=== PATIENT | female | born 1960 | race Caucasian/White ===

== ENCOUNTER 2016-06-12 13:17 | Outpatient (RCR) | payer MEDICAID ==
--- OUTSIDE RECORDS SUMMARY | 2016-03-15 08:47 | XMS REPORT | Continuity of Care Document ---
Author Author [facility] Organization [facility] Address Unknown Phone Unavailable Care Team Providers Care Engraver Signature Name Role Phone LUDIN SALINAS MD PCP Insurance Providers Payer Name Policy Number Subscriber Name Relationship [facility] [id number] Jimenez Seymour 18 Self / Same As Patient Advance Directives Directive Response Recorded Date/Time Advance Directives No 03/12/16 10:00pm Health Care Power of Senior Java Engineer No 03/12/16 10:00pm Organ Donor No 03/12/16 10:00pm Resuscitation Status DNR-Pt Request 03/12/16 10:00pm Chief Complaint and Reason for Visit Chief Complaint NEUTROPENIA WITH FEVER,METASTATIC BREAST CA,ANEMIA Reason for Visit Anemia Metastatic breast cancer Problems Active Problems Medical Problem Onset Date Status Anemia Unknown Acute Metastatic breast cancer Unknown Acute Medications Current Home Medications Medication Dose Units Route Directions Days/Qty Instructions Start Date Omeprazole Magnesium 20 Mg 20 Mg Oral Daily 03/12/16 Acetaminophen 500 Mg 1,000 Mg Oral Every 6 Hours as needed for Pain TAKES 2 (500 MG) TABLETS 03/12/16 Acyclovir 400 Mg 400 Mg Oral Twice A Day 03/13/16 Diphenhydramine Hcl 25 Mg 25 Mg Oral Twice A Day as needed for Allergies 03/13/16 Lorazepam 1 Mg 1 Mg Oral Three Times A Day as needed for Anxiety 09/23 Hydrocodone/Acetaminophen 1 Each 1 Tab Oral Every 4HRS as needed for Pain 03/13/16 Clindamycin Hcl 150 Mg 150 Mg Oral Four Times Daily 10 Days 03/14/16 Past Home Medications Medication Directions Ordered Status Acyclovir 200 Mg Capsule, Unknown Dose Oral Twice A Day 03/12/16 Discontinued Social History Social History Problem Response Recorded Date/Time Alcohol Use Denies Use 03/12/2016 10:00pm Recreational Drug Use No 03/12/2016 10:00pm Recent Foreign Travel No 03/12/2016 10:00pm Recent Infectious Disease Exposure No 03/12/2016 10:00pm Hospitalization with Isolation Reverse 03/14/2016 3:29pm Smoking Status Never a Smoker 03/12/2016 10:00pm Recent Hopitalizations No 03/12/2016 10:00pm Hospitalization with Isolation Reverse 03/14/2016 3:29pm Query Response Start Date Stop Date Smoking Status Never a Smoker Hospital Discharge Instructions Patient Instructions Physician Instructions New, Converted or Re-Newed RX: RX Given to Pt/Family Plan of Care/Instructions/FU: F/u with Dr. Hernández. Call for appointment. F/u at the [facility] on 03/15/2016 with CBC and to receive Granix if needed. Activity as Tolerated: Yes Discharge Diet: No Restrictions Care Plan Patient Instructions:: F/u with Dr. Hernández. Call for appointment.F/u at the [facility] on 03/15/2016 with CBC and to receive Granix ifneeded. Plan of Care Discharge Date 03/14/16 2:50pm Disposition 01 HOME, SELF-CARE Instructions/Education Provided Breast Cancer (DC) Prescriptions See Medication Section Referrals VIN HERNÁNDEZ DDRosa (Unspecified) - Address: [address] [place] [address], [facility] [place] [address] [phone] Reason(s) for Referral: follow up with Dr. Hernández Saturday03/16/16 at 1:15 pm. Additional Instructions/Education Follow up in cancer center tomorrow for Lab work. Care Plan and Goals See Discharge Instructions Section Functional Status Query Response Date Recorded Patient Orientation Person Place Time Situation March 14, 2016 3:28pm Comprehension Ability Understands Concepts March 14, 2016 8:10am Allergies, Adverse Reactions, Alerts Allergen Type Severity Reaction Status Last Updated Meperidine Allergy Unknown Active 02/03/16 ssri Adverse Reaction Unknown Active 10/03/16 Immunizations Name Given Type FLU TRIvalent 5 years - Adult 03/13/16 Administered Vital Signs Acute Vital Signs Vital Response Date/Time Temperature (Fahrenheit) 99.0 degrees F (97.6 - 99.5) 03/14/2016 2:50pm Temperature (Calculated Celsius) 36.56591 degrees C (36.4 - 37.5) 03/14/2016 8:00am Temperature Source Tympanic 03/14/2016 2:50pm Pulse Rate (adult) 91 bpm (60 - 90) 03/14/2016 2:50pm Respiratory Rate 18 bpm (12 - 24) 03/14/2016 2:50pm O2 Sat by Pulse Oximetry 98 % (88 - 100) 03/14/2016 2:50pm Blood Pressure 126/62 mm Hg 03/14/2016 2:50pm Blood Pressure Mean 74 mm Hg 03/14/2016 8:00am Pain Numeric Pain Scale 0-No Pain 03/14/2016 2:50pm Height (Feet) 5 feet 03/12/2016 10:00pm Height (Inches) 6.00 inches 03/12/2016 10:00pm Height (Calculated Centimeters) 167.541611 cm 03/12/2016 10:00pm Weight (Pounds) 165 pounds 03/12/2016 10:14pm Weight (Ounces) 1.0 oz 03/12/2016 10:14pm Weight (Calculated Grams) 37634.091 gm 03/12/2016 10:14pm Weight (Calculated Kilograms) 74.800205 kilograms 03/12/2016 10:14pm Calculated BMI 26.6 03/12/2016 10:00pm Capillary Refill Capillary Refill Less Than 3 Seconds 03/12/2016 7:51pm Results Laboratory Results Test Name Result Units Flags Reference Collection Date/Time Result Date/ Time Comments White Blood Count 1.1 10^3/uL CL 4.3-11.0 03/08/2016 9:00am 03/08/2016 9: 06am RESULTS GIVEN TO RN AT 09:04. THOMAS Red Blood Count 3.81 10^6/uL L 4.35-5.85 03/08/2016 9:00am 03/08/2016 9: 06am Hemoglobin 10.9 G/DL L 11.5-16.0 03/08/2016 9:00am 03/08/2016 9:06am Hematocrit 32 % L 35-52 03/08/2016 9:00am 03/08/2016 9:06am Mean Corpuscular Volume 83 FL 80-99 03/08/2016 9:00am 03/08/2016 9: 06am Mean Corpuscular Hemoglobin 29 PG 25-34 03/08/2016 9:00am 03/08/2016 9: 06am Mean Corpuscular Hemoglobin Concent 35 G/DL 32-36 03/08/2016 9:00am 9:06am Red Cell Distribution Width 12.5 % 10.0-14.5 03/08/2016 9:00am 2015 9:06am Platelet Count 302 10^3/uL 130-400 03/08/2016 9:00am 03/08/2016 9:06am Mean Platelet Volume 9.0 FL 7.4-10.4 03/08/2016 9:00am 03/08/2016 9: 06am Neutrophils (%) (Auto) 42 % 42-75 03/08/2016 9:00am 03/08/2016 9:06am Lymphocytes (%) (Auto) 42 % 12-44 03/08/2016 9:00am 03/08/2016 9:06am Monocytes (%) (Auto) 4 % 0-12 03/08/2016 9:00am 03/08/2016 9:06am Eosinophils (%) (Auto) 9 % 0-10 03/08/2016 9:00am 03/08/2016 9:06am Basophils (%) (Auto) 4 % 0-10 03/08/2016 9:00am 03/08/2016 9:06am Neutrophils # (Auto) 0.5 X 10^3 L 1.8-7.8 03/08/2016 9:00am 03/08/2016 9: 06am Lymphocytes # (Auto) 0.5 X 10^3 L 1.0-4.0 03/08/2016 9:00am 03/08/2016 9: 06am Monocytes # (Auto) 0.0 X 10^3 0.0-1.0 03/08/2016 9:00am 03/08/2016 9: 06am Eosinophils # (Auto) 0.1 10^3/uL 0.0-0.3 03/08/2016 9:00am 03/08/2016 9 :06am Basophils # (Auto) 0.0 10^3/uL 0.0-0.1 03/08/2016 9:00am 03/08/2016 9: 06am Urine Color YELLOW 02/07/2016 8:10am 02/07/2016 8:52am Urine Clarity SLIGHTLY CLOUDY 02/07/2016 8:10am 02/07/2016 8:52am Urine pH 6 5-9 02/07/2016 8:10am 02/07/2016 8:52am Urine Specific [place] 1.020 1.016-1.022 02/07/2016 8:10am 2015 8:52am Urine Protein 2+ * NEGATIVE 02/07/2016 8:10am 02/07/2016 8:52am Urine Glucose (UA) NEGATIVE NEGATIVE 02/07/2016 8:10am 02/07/2016 8: 52am Urine RBC (Auto) 2+ * NEGATIVE 02/07/2016 8:10am 02/07/2016 8:52am Urine Ketones 1+ * NEGATIVE 02/07/2016 8:10am 02/07/2016 8:52am Urine Nitrite NEGATIVE NEGATIVE 02/07/2016 8:10am 02/07/2016 8:52am Urine Bilirubin NEGATIVE NEGATIVE 02/07/2016 8:10am 02/07/2016 8: 52am Urine Urobilinogen 1 MG/DL NORMAL 02/07/2016 8:10am 02/07/2016 8:52am Urine Leukocyte Esterase 3+ * NEGATIVE 02/07/2016 8:10am 02/07/2016 8: 52am Urine RBC NONE /HPF 02/07/2016 8:10am 02/07/2016 8:52am Urine WBC 5-10 /HPF * 02/07/2016 8:10am 02/07/2016 8:52am Urine Bacteria MODERATE /HPF * 02/07/2016 8:10am 02/07/2016 8:52am Urine Squamous Epithelial Cells 0-2 /HPF 02/07/2016 8:10am 2015 8:52am Urine Crystals NONE /LPF 02/07/2016 8:10am 02/07/2016 8:52am Urine Casts NONE /LPF 02/07/2016 8:10am 02/07/2016 8:52am Urine Mucus MODERATE /LPF * 02/07/2016 8:10am 02/07/2016 8:52am Urine Culture Indicated YES 02/07/2016 8:10am 02/07/2016 8:52am 1 mL SPECIMEN - RESULTS ARE FROM SPECIMEN THAT WAS NOT CENTRIFUGED Sodium Level 138 MMOL/L 135-145 03/08/2016 9:00am 03/08/2016 9:34am Potassium Level 4.3 MMOL/L 3.6-5.0 03/08/2016 9:00am 03/08/2016 9:34am Chloride Level 106 MMOL/L 98-107 03/08/2016 9:00am 03/08/2016 9:34am Carbon Dioxide Level 22 MMOL/L 21-32 03/08/2016 9:00am 03/08/2016 9: 34am Anion Gap 10 MMOL/L 5-14 03/08/2016 9:00am 03/08/2016 9:34am Blood Urea Nitrogen 14 MG/DL 7-18 03/08/2016 9:00am 03/08/2016 9:34am Creatinine 0.65 MG/DL 0.60-1.30 03/08/2016 9:00am 03/08/2016 9:34am BUN/Creatinine Ratio 22 03/08/2016 9:00am 03/08/2016 9:34am Estimat Glomerular Filtration Rate > 60 03/08/2016 9:00am 2015 9:34am GFR INTERPRETIVE DATA UNITS FOR ESTIMATED GFR (eGFR): mL/min/1.73 M2 REFERENCE RANGE FOR ESTIMATED GFR (eGFR) eGFR NORMAL eGFR >60 MODERATELY DECREASED eGFR 30-59 SEVERLY DECREASED eGFR 15-29 KIDNEY FAILURE <15 (OR DIALYSIS) Glucose Level 85 MG/DL 70-105 03/08/2016 9:00am 03/08/2016 9:34am Glucometer 114 MG/DL H 70-110 02/07/2016 8:44am 02/07/2016 8:47am Calcium Level 9.2 MG/DL 8.5-10.1 03/08/2016 9:00am 03/08/2016 9:34am Total Bilirubin 0.7 MG/DL 0.1-1.0 02/28/2016 2:16pm 02/28/2016 2:43pm Alkaline Phosphatase 93 U/L 40-136 02/28/2016 2:16pm 02/28/2016 2:43pm Aspartate Amino Transf (AST/SGOT) 40 U/L H 5-34 02/28/2016 2:16pm 2015 2:43pm Alanine Aminotransferase (ALT/SGPT) 30 U/L 0-55 02/28/2016 2:16pm 02/27 2:43pm Total Protein 6.7 G/DL 6.4-8.2 02/28/2016 2:16pm 02/28/2016 2:43pm Albumin 4.0 G/DL 3.2-4.5 02/28/2016 2:16pm 02/28/2016 2:43pm Pending Laboratory Results Test Name Collection Date/Time Pending Microbiology Results Procedure Source Collection Date/Time Procedures No known history of procedures. Encounters Encounter Location Arrival/Admit Date Discharge/Depart Date Attending Provider Discharged Inpatient [facility] 03/12/16 9:04pm 2:50pm IRINA ROLAND Discharged Recurring [facility] 03/08/16 8:52am 1:49pm IRINA ROLAND Recent Diagnosis Anemia Metastatic breast cancer
[2016-03-15 09:03] LABS: MEAN CORPUSCULAR HEMOGLOBIN 29 PG (25-34); MEAN CORPUSCULAR HGB CONC 35 G/DL (32-36); MEAN CORPUSCULAR VOLUME 84 FL (80-99); MEAN PLATELET VOLUME 8.7 FL (7.4-10.4); PLATELET COUNT 281 10^3/uL (130-400); RED BLOOD COUNT 3.62 10^6/uL (4.35-5.85); WHITE BLOOD COUNT 21.6 10^3/uL (4.3-11.0)
[2016-03-20 13:47] LABS: BASOPHILS % (AUTO) 1 % (0-10); EOSINOPHILS % (AUTO) 1 % (0-10); LYMPHOCYTES # (AUTO) 0.9 X 10^3 (1.0-4.0); LYMPHOCYTES % (AUTO) 14 % (12-44); MEAN CORPUSCULAR HEMOGLOBIN 28 PG (25-34); MEAN CORPUSCULAR HGB CONC 33 G/DL (32-36); MEAN CORPUSCULAR VOLUME 84 FL (80-99); MEAN PLATELET VOLUME 8.9 FL (7.4-10.4); MONOCYTES # (AUTO) 0.9 X 10^3 (0.0-1.0); MONOCYTES % (AUTO) 14 % (0-12); NEUTROPHILS # (AUTO) 4.5 X 10^3 (1.8-7.8); NEUTROPHILS % (AUTO) 71 % (42-75); PLATELET COUNT 276 10^3/uL (130-400); RED BLOOD COUNT 3.97 10^6/uL (4.35-5.85); RED CELL DISTRIBUTION WIDTH 14.1 % (10.0-14.5); WHITE BLOOD COUNT 6.2 10^3/uL (4.3-11.0)
[2016-03-20 14:16] LABS: ALANINE AMINOTRANSFERASE 21 U/L (0-55); ALBUMIN 4.3 G/DL (3.2-4.5); ANION GAP 13 MMOL/L (5-14); ASPARTATE AMINO TRANSFERASE 23 U/L (5-34); BILIRUBIN,TOTAL 0.4 MG/DL (0.1-1.0); BLOOD UREA NITROGEN 8 MG/DL (7-18); BUN/CREATININE RATIO 11; CALCIUM 9.3 MG/DL (8.5-10.1); CARBON DIOXIDE 21 MMOL/L (21-32); CHLORIDE 105 MMOL/L (98-107); CREATININE SERUM 0.71 MG/DL (0.60-1.30); GFR ESTIMATED > 60; GLUCOSE 117 MG/DL (70-105); POTASSIUM 3.7 MMOL/L (3.6-5.0); SODIUM 139 MMOL/L (135-145); TOTAL PROTEIN 7.3 G/DL (6.4-8.2)
[2016-03-23 16:08] LABS: BASOPHILS % (AUTO) 0 % (0-10); EOSINOPHILS % (AUTO) 0 % (0-10); LYMPHOCYTES # (AUTO) 0.7 X 10^3 (1.0-4.0); LYMPHOCYTES % (AUTO) 3 % (12-44); MEAN CORPUSCULAR HEMOGLOBIN 29 PG (25-34); MEAN CORPUSCULAR HGB CONC 34 G/DL (32-36); MEAN CORPUSCULAR VOLUME 85 FL (80-99); MEAN PLATELET VOLUME 10.1 FL (7.4-10.4); MONOCYTES # (AUTO) 0.2 X 10^3 (0.0-1.0); MONOCYTES % (AUTO) 1 % (0-12); NEUTROPHILS # (AUTO) 22.2 X 10^3 (1.8-7.8); NEUTROPHILS % (AUTO) 96 % (42-75); PLATELET COUNT 234 10^3/uL (130-400); RED BLOOD COUNT 3.63 10^6/uL (4.35-5.85); RED CELL DISTRIBUTION WIDTH 14.6 % (10.0-14.5); WHITE BLOOD COUNT 23.1 10^3/uL (4.3-11.0)
[2016-03-27 08:48] LABS: BASOPHILS % (AUTO) 3 % (0-10); EOSINOPHILS % (AUTO) 2 % (0-10); LYMPHOCYTES # (AUTO) 0.4 X 10^3 (1.0-4.0); LYMPHOCYTES % (AUTO) 29 % (12-44); MEAN CORPUSCULAR HEMOGLOBIN 29 PG (25-34); MEAN CORPUSCULAR HGB CONC 34 G/DL (32-36); MEAN CORPUSCULAR VOLUME 83 FL (80-99); MEAN PLATELET VOLUME 9.2 FL (7.4-10.4); MONOCYTES # (AUTO) 0.1 X 10^3 (0.0-1.0); MONOCYTES % (AUTO) 4 % (0-12); NEUTROPHILS # (AUTO) 0.8 X 10^3 (1.8-7.8); NEUTROPHILS % (AUTO) 62 % (42-75); PLATELET COUNT 291 10^3/uL (130-400)
[2016-03-27 08:49] LABS: WHITE BLOOD COUNT 1.2 10^3/uL (4.3-11.0)
[2016-03-27 09:41] LABS: ANION GAP 6 MMOL/L (5-14); BLOOD UREA NITROGEN 9 MG/DL (7-18); BUN/CREATININE RATIO 15; CALCIUM 9.2 MG/DL (8.5-10.1); CARBON DIOXIDE 27 MMOL/L (21-32); CHLORIDE 104 MMOL/L (98-107); GFR ESTIMATED > 60; GLUCOSE 85 MG/DL (70-105); SODIUM 137 MMOL/L (135-145)
[2016-04-03 09:38] LABS: BASOPHILS # (AUTO) 0.1 10^3/uL (0.0-0.1); BASOPHILS % (AUTO) 4 % (0-10); EOSINOPHILS # (AUTO) 0.1 10^3/uL (0.0-0.3); EOSINOPHILS % (AUTO) 6 % (0-10); LYMPHOCYTES # (AUTO) 0.4 X 10^3 (1.0-4.0); LYMPHOCYTES % (AUTO) 36 % (12-44); MEAN CORPUSCULAR HEMOGLOBIN 29 PG (25-34); MEAN CORPUSCULAR HGB CONC 34 G/DL (32-36); MEAN CORPUSCULAR VOLUME 85 FL (80-99); MEAN PLATELET VOLUME 8.5 FL (7.4-10.4); MONOCYTES # (AUTO) 0.6 X 10^3 (0.0-1.0); MONOCYTES % (AUTO) 47 % (0-12); NEUTROPHILS # (AUTO) 0.1 X 10^3 (1.8-7.8); NEUTROPHILS % (AUTO) 7 % (42-75); PLATELET COUNT 270 10^3/uL (130-400); RED BLOOD COUNT 3.55 10^6/uL (4.35-5.85); RED CELL DISTRIBUTION WIDTH 15.5 % (10.0-14.5)
[2016-04-03 09:45] LABS: WHITE BLOOD COUNT 1.2 10^3/uL (4.3-11.0)
[2016-04-03 10:13] LABS: ANION GAP 7 MMOL/L (5-14); BLOOD UREA NITROGEN 6 MG/DL (7-18); BUN/CREATININE RATIO 9; CARBON DIOXIDE 27 MMOL/L (21-32); CHLORIDE 106 MMOL/L (98-107); CREATININE SERUM 0.65 MG/DL (0.60-1.30); GFR ESTIMATED > 60; GLUCOSE 88 MG/DL (70-105); SODIUM 140 MMOL/L (135-145)
[2016-04-09 09:04] LABS: BASOPHILS # (AUTO) 0.1 10^3/uL (0.0-0.1); BASOPHILS % (AUTO) 2 % (0-10); EOSINOPHILS % (AUTO) 1 % (0-10); LYMPHOCYTES # (AUTO) 0.6 X 10^3 (1.0-4.0); LYMPHOCYTES % (AUTO) 17 % (12-44); MEAN CORPUSCULAR HEMOGLOBIN 29 PG (25-34); MEAN CORPUSCULAR HGB CONC 34 G/DL (32-36); MEAN CORPUSCULAR VOLUME 85 FL (80-99); MONOCYTES # (AUTO) 0.8 X 10^3 (0.0-1.0); MONOCYTES % (AUTO) 22 % (0-12); NEUTROPHILS # (AUTO) 2.3 X 10^3 (1.8-7.8); NEUTROPHILS % (AUTO) 59 % (42-75); PLATELET COUNT 420 10^3/uL (130-400); RED BLOOD COUNT 3.89 10^6/uL (4.35-5.85); RED CELL DISTRIBUTION WIDTH 15.7 % (10.0-14.5); WHITE BLOOD COUNT 3.9 10^3/uL (4.3-11.0)
[2016-04-09 09:35] LABS: ALANINE AMINOTRANSFERASE 20 U/L (0-55); ALBUMIN 4.3 G/DL (3.2-4.5); ANION GAP 7 MMOL/L (5-14); ASPARTATE AMINO TRANSFERASE 19 U/L (5-34); BILIRUBIN,TOTAL 0.4 MG/DL (0.1-1.0); BLOOD UREA NITROGEN 6 MG/DL (7-18); BUN/CREATININE RATIO 9; CALCIUM 9.2 MG/DL (8.5-10.1); CARBON DIOXIDE 27 MMOL/L (21-32); CHLORIDE 107 MMOL/L (98-107); CREATININE SERUM 0.67 MG/DL (0.60-1.30); GFR ESTIMATED > 60; GLUCOSE 94 MG/DL (70-105); POTASSIUM 3.9 MMOL/L (3.6-5.0); SODIUM 141 MMOL/L (135-145); TOTAL PROTEIN 7.3 G/DL (6.4-8.2)
[2016-04-16 10:17] LABS: BASOPHILS # (AUTO) 0.1 10^3/uL (0.0-0.1); BASOPHILS % (AUTO) 3 % (0-10); EOSINOPHILS # (AUTO) 0.1 10^3/uL (0.0-0.3); EOSINOPHILS % (AUTO) 2 % (0-10); LYMPHOCYTES # (AUTO) 0.5 X 10^3 (1.0-4.0); LYMPHOCYTES % (AUTO) 19 % (12-44); MEAN CORPUSCULAR HEMOGLOBIN 29 PG (25-34); MEAN CORPUSCULAR HGB CONC 33 G/DL (32-36); MEAN CORPUSCULAR VOLUME 87 FL (80-99); MEAN PLATELET VOLUME 9.3 FL (7.4-10.4); MONOCYTES # (AUTO) 0.3 X 10^3 (0.0-1.0); MONOCYTES % (AUTO) 12 % (0-12); NEUTROPHILS # (AUTO) 1.8 X 10^3 (1.8-7.8); NEUTROPHILS % (AUTO) 64 % (42-75); PLATELET COUNT 185 10^3/uL (130-400); RED BLOOD COUNT 3.47 10^6/uL (4.35-5.85); RED CELL DISTRIBUTION WIDTH 15.2 % (10.0-14.5); WHITE BLOOD COUNT 2.8 10^3/uL (4.3-11.0)
[2016-04-16 10:54] LABS: ANION GAP 8 MMOL/L (5-14); BLOOD UREA NITROGEN 7 MG/DL (7-18); BUN/CREATININE RATIO 11; CALCIUM 9.3 MG/DL (8.5-10.1); CARBON DIOXIDE 27 MMOL/L (21-32); CHLORIDE 106 MMOL/L (98-107); CREATININE SERUM 0.61 MG/DL (0.60-1.30); GFR ESTIMATED > 60; GLUCOSE 91 MG/DL (70-105); POTASSIUM 3.8 MMOL/L (3.6-5.0); SODIUM 141 MMOL/L (135-145)
[2016-04-20 09:40] LABS: MEAN CORPUSCULAR HEMOGLOBIN 29 PG (25-34); MEAN CORPUSCULAR HGB CONC 32 G/DL (32-36); MEAN CORPUSCULAR VOLUME 88 FL (80-99); MEAN PLATELET VOLUME 9.4 FL (7.4-10.4); PLATELET COUNT 192 10^3/uL (130-400); RED BLOOD COUNT 3.55 10^6/uL (4.35-5.85); RED CELL DISTRIBUTION WIDTH 16.3 % (10.0-14.5)
[2016-04-20 09:47] LABS: WHITE BLOOD COUNT 42.1 10^3/uL (4.3-11.0)
[2016-04-26 12:00] LABS: BASOPHILS % (AUTO) 1 % (0-10); EOSINOPHILS % (AUTO) 2 % (0-10); LYMPHOCYTES # (AUTO) 0.6 X 10^3 (1.0-4.0); LYMPHOCYTES % (AUTO) 27 % (12-44); MEAN CORPUSCULAR HEMOGLOBIN 29 PG (25-34); MEAN CORPUSCULAR HGB CONC 33 G/DL (32-36); MEAN CORPUSCULAR VOLUME 87 FL (80-99); MEAN PLATELET VOLUME 9.4 FL (7.4-10.4); MONOCYTES # (AUTO) 0.4 X 10^3 (0.0-1.0); MONOCYTES % (AUTO) 21 % (0-12); NEUTROPHILS % (AUTO) 49 % (42-75); PLATELET COUNT 247 10^3/uL (130-400); RED BLOOD COUNT 3.55 10^6/uL (4.35-5.85); RED CELL DISTRIBUTION WIDTH 16.2 % (10.0-14.5); WHITE BLOOD COUNT 2.1 10^3/uL (4.3-11.0)
[2016-04-26 13:25] LABS: ANION GAP 6 MMOL/L (5-14); BLOOD UREA NITROGEN 6 MG/DL (7-18); BUN/CREATININE RATIO 9; CARBON DIOXIDE 28 MMOL/L (21-32); CHLORIDE 107 MMOL/L (98-107); CREATININE SERUM 0.68 MG/DL (0.60-1.30); GFR ESTIMATED > 60; GLUCOSE 111 MG/DL (70-105); POTASSIUM 3.8 MMOL/L (3.6-5.0); SODIUM 141 MMOL/L (135-145)
[2016-05-07 09:22] LABS: BASOPHILS % (AUTO) 0 % (0-10); EOSINOPHILS % (AUTO) 0 % (0-10); LYMPHOCYTES # (AUTO) 0.2 X 10^3 (1.0-4.0); LYMPHOCYTES % (AUTO) 4 % (12-44); MEAN CORPUSCULAR HEMOGLOBIN 29 PG (25-34); MEAN CORPUSCULAR HGB CONC 34 G/DL (32-36); MEAN CORPUSCULAR VOLUME 86 FL (80-99); MEAN PLATELET VOLUME 9.6 FL (7.4-10.4); MONOCYTES # (AUTO) 0.1 X 10^3 (0.0-1.0); MONOCYTES % (AUTO) 1 % (0-12); NEUTROPHILS # (AUTO) 5.6 X 10^3 (1.8-7.8); NEUTROPHILS % (AUTO) 95 % (42-75); PLATELET COUNT 294 10^3/uL (130-400); RED BLOOD COUNT 3.67 10^6/uL (4.35-5.85); RED CELL DISTRIBUTION WIDTH 16.1 % (10.0-14.5); WHITE BLOOD COUNT 5.9 10^3/uL (4.3-11.0)
[2016-05-07 09:46] LABS: ALANINE AMINOTRANSFERASE 32 U/L (0-55); ALBUMIN 4.4 G/DL (3.2-4.5); ANION GAP 10 MMOL/L (5-14); ASPARTATE AMINO TRANSFERASE 30 U/L (5-34); BILIRUBIN,TOTAL 0.5 MG/DL (0.1-1.0); BLOOD UREA NITROGEN 10 MG/DL (7-18); BUN/CREATININE RATIO 16; CALCIUM 9.6 MG/DL (8.5-10.1); CARBON DIOXIDE 21 MMOL/L (21-32); CHLORIDE 108 MMOL/L (98-107); CREATININE SERUM 0.64 MG/DL (0.60-1.30); GFR ESTIMATED > 60; GLUCOSE 129 MG/DL (70-105); POTASSIUM 3.9 MMOL/L (3.6-5.0); SODIUM 139 MMOL/L (135-145); TOTAL PROTEIN 7.2 G/DL (6.4-8.2)
[2016-05-14 08:49] LABS: BASOPHILS % (AUTO) 0 % (0-10); EOSINOPHILS % (AUTO) 0 % (0-10); LYMPHOCYTES # (AUTO) 0.2 X 10^3 (1.0-4.0); LYMPHOCYTES % (AUTO) 5 % (12-44); MEAN CORPUSCULAR HEMOGLOBIN 29 PG (25-34); MEAN CORPUSCULAR HGB CONC 34 G/DL (32-36); MEAN CORPUSCULAR VOLUME 87 FL (80-99); MEAN PLATELET VOLUME 9.7 FL (7.4-10.4); MONOCYTES % (AUTO) 1 % (0-12); NEUTROPHILS % (AUTO) 94 % (42-75); PLATELET COUNT 352 10^3/uL (130-400); RED BLOOD COUNT 3.73 10^6/uL (4.35-5.85); RED CELL DISTRIBUTION WIDTH 15.5 % (10.0-14.5); WHITE BLOOD COUNT 3.2 10^3/uL (4.3-11.0)
[2016-05-14 09:15] LABS: ANION GAP 10 MMOL/L (5-14); BLOOD UREA NITROGEN 11 MG/DL (7-18); BUN/CREATININE RATIO 17; CALCIUM 9.5 MG/DL (8.5-10.1); CARBON DIOXIDE 22 MMOL/L (21-32); CHLORIDE 106 MMOL/L (98-107); CREATININE SERUM 0.64 MG/DL (0.60-1.30); GFR ESTIMATED > 60; GLUCOSE 130 MG/DL (70-105); POTASSIUM 3.9 MMOL/L (3.6-5.0); SODIUM 138 MMOL/L (135-145)
[2016-05-21 08:44] LABS: BASOPHILS % (AUTO) 0 % (0-10); EOSINOPHILS % (AUTO) 0 % (0-10); LYMPHOCYTES # (AUTO) 0.1 X 10^3 (1.0-4.0); LYMPHOCYTES % (AUTO) 4 % (12-44); MEAN CORPUSCULAR HEMOGLOBIN 30 PG (25-34); MEAN CORPUSCULAR HGB CONC 34 G/DL (32-36); MEAN CORPUSCULAR VOLUME 87 FL (80-99); MEAN PLATELET VOLUME 9.2 FL (7.4-10.4); MONOCYTES % (AUTO) 1 % (0-12); NEUTROPHILS # (AUTO) 3.2 X 10^3 (1.8-7.8); NEUTROPHILS % (AUTO) 95 % (42-75); PLATELET COUNT 287 10^3/uL (130-400); RED BLOOD COUNT 3.76 10^6/uL (4.35-5.85); WHITE BLOOD COUNT 3.4 10^3/uL (4.3-11.0)
[2016-05-21 09:07] LABS: ANION GAP 12 MMOL/L (5-14); BLOOD UREA NITROGEN 8 MG/DL (7-18); BUN/CREATININE RATIO 12; CALCIUM 9.4 MG/DL (8.5-10.1); CARBON DIOXIDE 20 MMOL/L (21-32); CHLORIDE 106 MMOL/L (98-107); CREATININE SERUM 0.69 MG/DL (0.60-1.30); GFR ESTIMATED > 60; GLUCOSE 174 MG/DL (70-105); POTASSIUM 3.6 MMOL/L (3.6-5.0); SODIUM 138 MMOL/L (135-145)
[2016-05-28 13:15] LABS: BASOPHILS % (AUTO) 1 % (0-10); EOSINOPHILS # (AUTO) 0.1 10^3/uL (0.0-0.3); EOSINOPHILS % (AUTO) 3 % (0-10); LYMPHOCYTES # (AUTO) 0.4 X 10^3 (1.0-4.0); LYMPHOCYTES % (AUTO) 20 % (12-44); MEAN CORPUSCULAR HEMOGLOBIN 29 PG (25-34); MEAN CORPUSCULAR HGB CONC 34 G/DL (32-36); MEAN CORPUSCULAR VOLUME 87 FL (80-99); MEAN PLATELET VOLUME 8.8 FL (7.4-10.4); MONOCYTES # (AUTO) 0.2 X 10^3 (0.0-1.0); MONOCYTES % (AUTO) 9 % (0-12); NEUTROPHILS # (AUTO) 1.4 X 10^3 (1.8-7.8); NEUTROPHILS % (AUTO) 67 % (42-75); PLATELET COUNT 295 10^3/uL (130-400); RED BLOOD COUNT 3.64 10^6/uL (4.35-5.85)
[2016-05-28 13:46] LABS: ALANINE AMINOTRANSFERASE 45 U/L (0-55); ALBUMIN 4.2 G/DL (3.2-4.5); ANION GAP 10 MMOL/L (5-14); ASPARTATE AMINO TRANSFERASE 28 U/L (5-34); BILIRUBIN,TOTAL 0.5 MG/DL (0.1-1.0); BLOOD UREA NITROGEN 6 MG/DL (7-18); BUN/CREATININE RATIO 9; CALCIUM 8.9 MG/DL (8.5-10.1); CARBON DIOXIDE 22 MMOL/L (21-32); CHLORIDE 106 MMOL/L (98-107); CREATININE SERUM 0.68 MG/DL (0.60-1.30); GFR ESTIMATED > 60; GLUCOSE 120 MG/DL (70-105); MAGNESIUM 2.1 MG/DL (1.8-2.4); POTASSIUM 3.4 MMOL/L (3.6-5.0); SODIUM 138 MMOL/L (135-145); TOTAL PROTEIN 6.9 G/DL (6.4-8.2)
[2016-06-05 14:01] LABS: BASOPHILS % (AUTO) 1 % (0-10); EOSINOPHILS # (AUTO) 0.1 10^3/uL (0.0-0.3); EOSINOPHILS % (AUTO) 1 % (0-10); LYMPHOCYTES # (AUTO) 0.7 X 10^3 (1.0-4.0); LYMPHOCYTES % (AUTO) 17 % (12-44); MEAN CORPUSCULAR HEMOGLOBIN 29 PG (25-34); MEAN CORPUSCULAR HGB CONC 34 G/DL (32-36); MEAN CORPUSCULAR VOLUME 87 FL (80-99); MEAN PLATELET VOLUME 9.1 FL (7.4-10.4); MONOCYTES # (AUTO) 0.4 X 10^3 (0.0-1.0); MONOCYTES % (AUTO) 9 % (0-12); NEUTROPHILS % (AUTO) 72 % (42-75); PLATELET COUNT 344 10^3/uL (130-400); RED BLOOD COUNT 3.67 10^6/uL (4.35-5.85); RED CELL DISTRIBUTION WIDTH 14.8 % (10.0-14.5); WHITE BLOOD COUNT 4.2 10^3/uL (4.3-11.0)
[2016-06-05 14:16] LABS: ANION GAP 10 MMOL/L (5-14); BLOOD UREA NITROGEN 7 MG/DL (7-18); BUN/CREATININE RATIO 10; CARBON DIOXIDE 22 MMOL/L (21-32); CHLORIDE 106 MMOL/L (98-107); CREATININE SERUM 0.71 MG/DL (0.60-1.30); GFR ESTIMATED > 60; GLUCOSE 87 MG/DL (70-105); POTASSIUM 3.7 MMOL/L (3.6-5.0); SODIUM 138 MMOL/L (135-145)
[~2016-06-12] VITALS: Ht 166.4 cm; Wt 77.1 kg
[~2016-06-12 13:17] MED LIST: ACET-168 PO; ACYC200C PO; ACYC400T PO; CLIN150C17 PO; CYCLOPHOSPHAMIDE INJECTION 1,000 MG in NS (IVPB) CANCER CENTER 250 ML IV SCH; DIPH25TA31 PO; DOXORUBICIN IV SCH; FAMOTIDINE 20MG/2ML IV (CANCER CTR) IV SCH; FOSAPREPITANT 150 MG/NS 150 MG IVPB (CANCER CTR) IV PRN; HYDR-3729 PO; LORA1TAB PO; LORazepam 0.5 MG (ATIVAN) TABLET CANCER CTR PO PRN; LORazepam INJ 2 MG/ML VIAL CANCER CTR IV SCH; NS IV 500 ML (CANCER CENTER) IV SCH; NS IV SCH; OMEP20TA33 PO; ONDANSETRON 16 MG, DEXAMETHASONE 10 MG/NS 50 ML IVPB IV SCH; PACLITAXEL SEMI SYNTHETIC IV SCH; PALONOSETRON HCL 0.25 MG, DEXAMETHASONE PF INJ (CANCER C 5 MG in NS (IVPB) CANCER CENTE... IV PRN; TBO-FILGRASTIM 480 MCG/0.8 ML (GRANIX) CANCER CTR SQ SCH; diphenhydrAMINE 25 MG TAB (BENADRYL) CANCER CENTER PO SCH; diphenhydrAMINE 50 MG/ML INJ (CANCER CENTER) IV PRN; diphenhydrAMINE 50 MG/ML INJ (CANCER CENTER) ONE
[2016-06-12 13:46] LABS: BASOPHILS % (AUTO) 1 % (0-10); EOSINOPHILS # (AUTO) 0.1 10^3/uL (0.0-0.3); EOSINOPHILS % (AUTO) 2 % (0-10); LYMPHOCYTES # (AUTO) 0.6 X 10^3 (1.0-4.0); LYMPHOCYTES % (AUTO) 15 % (12-44); MEAN CORPUSCULAR HEMOGLOBIN 29 PG (25-34); MEAN CORPUSCULAR HGB CONC 34 G/DL (32-36); MEAN CORPUSCULAR VOLUME 87 FL (80-99); MEAN PLATELET VOLUME 8.8 FL (7.4-10.4); MONOCYTES # (AUTO) 0.4 X 10^3 (0.0-1.0); MONOCYTES % (AUTO) 11 % (0-12); NEUTROPHILS # (AUTO) 2.7 X 10^3 (1.8-7.8); NEUTROPHILS % (AUTO) 70 % (42-75); PLATELET COUNT 324 10^3/uL (130-400); RED BLOOD COUNT 3.75 10^6/uL (4.35-5.85); RED CELL DISTRIBUTION WIDTH 14.9 % (10.0-14.5); WHITE BLOOD COUNT 3.8 10^3/uL (4.3-11.0)
[2016-06-12 14:15] LABS: ANION GAP 10 MMOL/L (5-14); BLOOD UREA NITROGEN 10 MG/DL (7-18); BUN/CREATININE RATIO 14; CALCIUM 8.8 MG/DL (8.5-10.1); CARBON DIOXIDE 22 MMOL/L (21-32); CHLORIDE 108 MMOL/L (98-107); CREATININE SERUM 0.71 MG/DL (0.60-1.30); GFR ESTIMATED > 60; GLUCOSE 91 MG/DL (70-105); POTASSIUM 4.6 MMOL/L (3.6-5.0); SODIUM 140 MMOL/L (135-145)
== END 2016-06-13 | disposition home or self-care (01) ==
LOC: ONC 13:17
PROVIDERS: ATTEND Internal Medicine Hematology & Oncology
DX: Z51.11 Encounter for antineoplastic chemotherapy (principal); C50.411 Malignant neoplasm of upper-outer quadrant of right female breast; Z17.0 Estrogen receptor positive status [ER+]; Z80.3 Family history of malignant neoplasm of breast
CPT/HCPCS: 36415; 36591; 80048; 80053; 83735; 85025; 96367; 96372; 96374; 96375; 96411; 96413; 96417; 99213

== ENCOUNTER → 2016-07-26 | Outpatient (CLI) | payer MEDICAID ==
[~2016-07-26] MED LIST changes: -CYCLOPHOSPHAMIDE INJECTION 1,000 MG in NS (IVPB) CANCER CENTER 250 ML IV SCH; +DOCU-143 PO; -DOXORUBICIN IV SCH; -FAMOTIDINE 20MG/2ML IV (CANCER CTR) IV SCH; -FOSAPREPITANT 150 MG/NS 150 MG IVPB (CANCER CTR) IV PRN; +HYDR-3812 PO; -LORazepam 0.5 MG (ATIVAN) TABLET CANCER CTR PO PRN; -LORazepam INJ 2 MG/ML VIAL CANCER CTR IV SCH; -NS IV 500 ML (CANCER CENTER) IV SCH; -NS IV SCH; -ONDANSETRON 16 MG, DEXAMETHASONE 10 MG/NS 50 ML IVPB IV SCH; -PACLITAXEL SEMI SYNTHETIC IV SCH; -PALONOSETRON HCL 0.25 MG, DEXAMETHASONE PF INJ (CANCER C 5 MG in NS (IVPB) CANCER CENTE... IV PRN; -TBO-FILGRASTIM 480 MCG/0.8 ML (GRANIX) CANCER CTR SQ SCH; -diphenhydrAMINE 25 MG TAB (BENADRYL) CANCER CENTER PO SCH; -diphenhydrAMINE 50 MG/ML INJ (CANCER CENTER) IV PRN; -diphenhydrAMINE 50 MG/ML INJ (CANCER CENTER) ONE
--- OUTSIDE RECORDS SUMMARY | 2016-07-26 08:49 | XMS REPORT | Continuity of Care Document ---
Author Author [facility] Organization [facility] Address Unknown Phone Unavailable Care Team Providers Care Corrosion Engineer Name Role Phone LUDIN SALINAS MD PCP Insurance Providers Payer Name Policy Number Subscriber [facility] [id number] Jimenez Seymour 18 Self / Same As Patient Advance Directives Directive Response Recorded Date/Time Advance Directives No 03/12/16 10:00pm Health Care Power of Qualification Engineer No 03/12/16 10:00pm Organ Donor No [...] Discharge/Depart Date Attending Provider Discharged Recurring [facility] 06/12/16 1:17pm 11:59pm IRINA ROLAND
--- NOTE | 2016-07-26 18:57 | Diagnostic Imaging Report ---
Right breast ultrasound. INDICATION: History of breast cancer. Check tumor size. COMPARISON: 04/26/2016. FINDINGS: The area of the mass along the 10 o'clock zone previously seen has slightly heterogeneous parenchyma appearance with no discrete lesion identified. IMPRESSION: Interval complete resolution of the previously seen mass at 10 o'clock position by ultrasound. ACR BI-RADS Category 6: Known biopsy proven malignancy. Dictated by: Dictated on workstation # [id number]
== END ==
LOC: RAD 08:45
PROVIDERS: ATTEND Nurse Practitioner Adult Health
DX: C50.411 Malignant neoplasm of upper-outer quadrant of right female breast (principal)

== ENCOUNTER → 2016-08-01 | Outpatient (CLI) | payer MEDICAID ==
--- OUTSIDE RECORDS SUMMARY | 2016-08-01 10:56 | XMS REPORT | Continuity of Care Document ---
Author Author [facility] Organization [facility] Address Unknown Phone Unavailable Care Team Providers Care Brusher Hand Name Role Phone LUDIN SALINAS MD PCP Insurance Providers Payer Name Policy Number [facility] [id number] Jimenez Seymour 18 Self / Same As Patient Advance Directives Directive Response Recorded Date/Time Advance Directives No 03/12/16 10:00pm Health Care Power of Heavy Mobile Equipment Repairer No 03/12/16 10:00pm Organ Donor No 03/12/16 [...] Discharge/Depart Date Attending Provider Discharged Recurring [facility] 06/12/16 1:17pm 11:59pm IRINA ROLAND
--- NOTE | 2016-08-01 12:16 | Diagnostic Imaging Report ---
EXAMINATION: Pelvic ultrasound. INDICATION: Pelvic pain. COMPARISON: There are no previous pelvic ultrasound examinations available for comparison. FINDINGS: The uterus is not enlarged measuring 6.4 x 4.3 x 3.4 cm. There is a calcified hypoechoic mass in the uterine body/fundus on the right measuring 2.1 x 1.6 x 2.1 cm. Most likely, this represents a calcified uterine fibroid. In retrospect, this finding was also present on the prior PET/CT exam of 01/24/2016. The suspected fibroid does not seem to have changed significantly. The endometrium does not seem to be thickened although it was not well visualized. The endometrium measures approximately 3 mm. Both ovaries are identified and are generally unremarkable. Each ovary contains a few subcentimeter follicles. There is no solid pelvic mass or free fluid collection noted. IMPRESSION: 1. The uterus is not enlarged but there does appear to be a 2.1 x 2.1 cm calcified uterine fibroid on the right. 2. The endometrial lining is not well-visualized but the endometrium does not appear to be abnormally thickened. 3. There is no pelvic mass or free fluid collection to suggest an acute abnormality. Dictated by: Dictated on workstation # [id number]
== END ==
LOC: RAD 10:52
PROVIDERS: ATTEND Obstetrics & Gynecology
DX: R10.2 Pelvic and perineal pain (principal)
CPT/HCPCS: 76830; 76856

== ENCOUNTER 2016-08-02 12:07 | Outpatient (CLI) | payer MEDICAID ==
[~2016-08-02] VITALS: Ht 167.6 cm; Wt 84.6 kg
[~2016-08-02 12:07] MED LIST changes: -DOCU-143 PO; -HYDR-3812 PO
--- OUTSIDE RECORDS SUMMARY | 2016-08-02 12:11 | XMS REPORT | Continuity of Care Document ---
Author Author [facility] Organization [facility] Address Unknown Phone Unavailable Care Team Providers Care Spooler Name Role Phone LUDIN SALINAS MD PCP Insurance Providers Payer Name Policy Number Subscriber [facility] [id number] Jimenez Seymour 18 Self / Same As Patient Advance Directives Directive Response Recorded Date/Time Advance Directives No 03/12/16 10:00pm Health Care Power of Mine Geologist No 03/12/16 10:00pm Organ Donor No 03/12/16 [...] Discharge/Depart Date Attending Provider Discharged Recurring [facility] 06/12/16 1:17pm 11:59pm IRINA ROLAND
[2016-08-02 12:20] VITALS: BP 132/85
== END 2016-08-02 13:14 | disposition home or self-care (01) ==
LOC: PREOP 12:07
PROVIDERS: ATTEND Surgery
DX: Z01.818 Encounter for other preprocedural examination (principal); Z11.2 Encounter for screening for other bacterial diseases; C50.411 Malignant neoplasm of upper-outer quadrant of right female breast
CPT/HCPCS: 87081

== ENCOUNTER 2016-08-06 09:36 | Day surgery (SDC) | payer MEDICAID ==
[~2016-08-06] VITALS: Ht 167.6 cm; Wt 84.6 kg
[2016-08-06 09:38] VITALS: BP 138/89
--- OUTSIDE RECORDS SUMMARY | 2016-08-06 09:42 | XMS REPORT | Continuity of Care Document ---
Author Author [facility] Organization [facility] Address Unknown Phone Unavailable Care Team Providers Care Zipper Trimmer Name Role Phone LUDIN SALINAS MD PCP Insurance Providers Payer Name Policy Number [facility]scriber [facility] [id number] Jimenez Seymour 18 Self / Same As Patient Advance Directives Directive Response Recorded Date/Time Advance Directives No 03/12/16 10:00pm Health Care Power of Parquetry Layer No 03/12/16 10:00pm Organ Donor No 03/12/16 [...] Discharge/Depart Date Attending Provider Discharged Recurring [facility] 06/12/16 1:17pm 11:59pm IRINA ROLAND
--- NOTE | 2016-08-06 09:59 | Progress Note-Pre Operative ---
Pre-Operative Progress Note H&P Reviewed The H&P was reviewed, patient examined and no changes noted. 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
[2016-08-06] MEDS ORDERED: proPOfol 200 MG/20 ML (DIPRIVAN) VIAL IV ONE (10:19)
[2016-08-06] MEDS ORDERED: ONDANSETRON 4 MG/2 ML (SDV) Z0FRAN ONE (10:19)
[2016-08-06] MEDS ORDERED: LACTATED RINGERS 1,000 ML IV PRN (10:19)
[2016-08-06] MEDS ORDERED: fentaNYL INJECTION 100 MCG/2 ML AMP ONE (10:19)
[2016-08-06] MEDS ORDERED: SEVOFLURANE (ULTANE) 15 ML INHAL SOLN ONE ×7 (10:19→13:24)
[2016-08-06] MEDS ORDERED: DEXAMETHASONE PF 10 MG/ML (DECADRON) VIAL ONE (10:19)
[2016-08-06] MEDS ORDERED: LIDOCAINE PF 2% 10 ML (XYLOCAINE) AMP ONE (10:19)
[2016-08-06] MEDS ORDERED: MIDAZOLAM 2 MG/2 ML (VERSED) VIAL ONE (10:19)
[2016-08-06] MEDS ORDERED: ceFAZolin 2 GM/50 ML NS 50 ML IV ONE (10:20)
[2016-08-06] MEDS ORDERED: FAMOTIDINE 20MG/2ML IV (PEPCID) IV ONE (10:30)
[2016-08-06] MEDS ORDERED: ceFAZolin 2 GM/NS 50 ML IV ONE (11:00)
[2016-08-06] MEDS ORDERED: morphine INJ 10 MG/ML 1ML (SYR OR VIAL) ONE (13:19)
[2016-08-06] MEDS: morphine INJ 10 MG/ML 1ML (SYR OR VIAL) IV PRN ×2 (13:40→13:44)
[2016-08-06] MEDS ORDERED: ONDANSETRON 4 MG/2 ML (SDV) Z0FRAN IV PRN (13:45)
--- NOTE | 2016-08-06 13:53 | Progress Note-Post Operative ---
Post-Operative Progess Note Financial Institution President Dr. Gant Pre-Operative Diagnosis infiltrating high grade ductal carcinoma right breast Post-Operative Diagnosis same Post-Op Procedure Note Date of Procedure: Aug 06, 2016 Name of Procedure: right modified radical mastectomy Procedure Note/Findings see note Anesthesia Type general Estimated blood loss (mL): minimal Specimen(s) collected right breast and axillary contents CALEB BRITT DO Aug 06, 2016 1:52 pm
[2016-08-06] MEDS ORDERED: ONDANSETRON 4 MG/2 ML (SDV) Z0FRAN IVP PRN (14:00)
[2016-08-06] MEDS ORDERED: morphine INJ 10 MG/ML 1ML (SYR OR VIAL) IVP PRN (14:00)
[2016-08-06] MEDS: PROMETHAZINE INJ 25 MG/ML (PHENERGAN) AMP IV PRN ×2 (14:38→15:06)
[2016-08-06] MEDS: LACTATED RINGERS 1,000 ML IV SCH (15:06)
[2016-08-06 15:15] VITALS: BP 104/71
[2016-08-06 18:07] VITALS: BP 113/62
[2016-08-06] MEDS: HYDROcodone/APAP 5 MG/325 MG (LORTAB) TAB PO PRN (19:50)
[2016-08-06] MEDS: ceFAZolin 2 GM/50 ML NS 50 ML IV SCH (19:51)
[2016-08-06 20:14] VITALS: BP 106/67
[2016-08-07 00:30] VITALS: BP 100/66
[2016-08-07] MEDS: HYDROcodone/APAP 5 MG/325 MG (LORTAB) TAB PO PRN ×4 (01:28→14:19)
[2016-08-07] MEDS: ceFAZolin 2 GM/50 ML NS 50 ML IV SCH (01:28)
[2016-08-07 04:30] VITALS: BP 104/59
[2016-08-07 08:42] VITALS: BP 102/64
[2016-08-07] MEDS ORDERED: POLYETHYLENE GLYCOL 17 GM (MIRALAX) PACK PO NR (09:15)
[2016-08-07] MEDS ORDERED: HYDR-3812 PO (09:18)
[2016-08-07] MEDS ORDERED: DOCU-143 PO (09:18)
--- NOTE | 2016-08-07 09:21 | Discharge Inst-Simple/Standard ---
Discharge Inst-Standard Discharge Medications New, Converted or Re-Newed RX: RX on Chart Patient Instructions/Follow Up Plan of Care/Instructions/FU: Follow up with PCP in one week Follow up with Dr. Sagastume in 2 weeks Take medication as directed. If drain is less than 30ml in 24 hour period. Call the clinic and come in to have it removed. Keep accurate records. If you have any questions or concerns call the clinic. Activity as Tolerated: No Discharge Diet: No Restrictions Other Inst to Patient Follow up Appt: Make appointment for 2 weeks. Instructions: No lifting greater than 10 pounds. No strenuous activity. May shower in 24 hours, no tub bath or soaking. Use incentive spirometer at home as directed. No Smoking Skin/Wound Care: May remove bandages. You need to leave the white strips over incision on they will fall off on their own. Symptoms to Report: Appetite Changes, Extremity Discoloration, Numbness/Tingling, Swelling Increased , Bleeding Excessive, Eyesight Changes, Pain Increased, Urine Color Change, Constipation(Persistent), Fever over 101 degree F, Pain/Pressure in chest, Urinating Difficulty, Cough Up/Vomit Blood, Heart Beat Irreg/Pounding, Pain/ Pressure in jaw, Vaginal Bleeding Increase, Cramps in feet or legs, Lightheadedness, Pain/Pressure in shoulder, Diarrhea(Persistent), Memory Changes Suddenly, Questions/Concerns, Weight gain consecutive days, Dizziness/ Fainting, Nausea/Vomiting, Shortness of Breath, Weight gain over 2 pounds If questions or concerns contact your physician Or seek help at emergency department. SENIA ROSE APRN Aug 07, 2016 09:21
[2016-08-07] MEDS: LACTATED RINGERS 1,000 ML IV SCH ×2 (10:30→13:53)
[2016-08-07 12:17] VITALS: BP 103/63
--- NOTE | 2016-08-07 13:36 | Progress Note ---
Subjective Subjective/Events-last exam doing well. pain controlled, wanting to go home. denies n/v fever sweats chills shortness of breath or chest pain. Objective Exam Vital Signs Date Time Temp Pulse Resp B/P Pulse Ox O2 Delivery O2 Flow Rate FiO2 08/07/16 08:42 97.9 68 18 102/64 99 Room Air 08/07/16 04:30 98.1 70 18 104/59 97 08/07/16 00:30 97.6 75 18 100/66 96 Room Air 08/06/16 20:14 97.6 84 18 106/67 08/06/16 18:07 97.9 71 20 113/62 99 Room Air 08/06/16 15:15 98.2 67 20 104/71 95 I & O 08/07/16 07:00 Intake Total 2825 ml Output Total 1610 ml Balance 1215 ml Capillary Refill : General Appearance: No Apparent Distress Respiratory: No Accessory Muscle Use No Respiratory Distress Cardiovascular: Regular Rate, Rhythm Gastrointestinal: non tender soft Extremity: Non Tender Neurologic/Psychiatric: Alert Oriented x3 Skin: Normal Color Warm/Dry Other comments incision right chest clean dry intact no erythema APPLE drains serosang Assessment/Plan Assessment/Plan Assessment/Plan right modified radical mastectomy doing well pain controlled okay to dc home today. apple drains to be left in till less than 30 mL in 24 hours. Clinical Quality Measures DVT/VTE Risk/Contraindication: Risk Factor Score Per Nursin RFS Level Per Nursing on Admit: 4+=Very High CALEB BRITT DO Aug 07, 2016 13:35
--- OUTSIDE RECORDS SUMMARY | 2016-08-08 12:43 | XMS REPORT | Continuity of Care Document ---
Author Author [facility] Organization [facility] Address Unknown Phone Unavailable Care Team Providers Care Mat Linker Name Role Phone LUDIN SALINAS MD PCP Insurance Providers Payer Name Policy Number Subscriber Name Relationship [facility] [employer] [id number] Jimenez Seymour 18 Self / Same As Patient Advance Directives Directive Response Recorded Date/Time Advance Directives No 03/12/16 10:00pm Health Care Power of Muck Operator No 03/12/16 10:00pm Organ Donor No 03/12/16 [...] Discharge/Depart Date Attending Provider Discharged Recurring [facility] 06/12/16 1:17pm 11:59pm IRINA ROLAND
--- OUTSIDE RECORDS SUMMARY | 2016-08-08 12:44 | XMS REPORT | Continuity of Care Document ---
Author Author [facility] Organization [facility] Address Unknown Phone Unavailable Care Team Providers Care Entry Level Chemist Name Role Phone LUDIN SALINAS MD PCP Insurance Providers Payer Name Policy Number Subscriber Name [facility] [id number] Jimenez Seymour 18 Self / Same As Patient Advance Directives Directive Response Recorded Date/Time Advance Directives No 03/12/16 10:00pm Health Care Power of Bus Van Driver No 03/12/16 10:00pm Organ Donor No 03/12/16 [...] Discharge/Depart Date Attending Provider Discharged Recurring [facility] 06/12/16 1:17pm 11:59pm IRINA ROLAND
--- NOTE | 2016-08-09 12:41 | OPERATIVE REPORT ---
PROCEDURE PHYSICIAN: CALEB BRITT DATE OF PROCEDURE: 08/06/2016 PREOPERATIVE DIAGNOSIS: Infiltrating high-grade ductal carcinoma right breast. POSTOPERATIVE DIAGNOSIS: Infiltrating high-grade ductal carcinoma right breast. PROCEDURE: Right modified radical mastectomy. SURGEON: Tanika. HOME HEALTH NURSE LICENSED PRACTICAL: Dr. Gant, assist in retraction, dissection, and closure. ANESTHESIA: General. ESTIMATED BLOOD LOSS: Minimal. COMPLICATIONS: None. INDICATIONS: The patient is a 56-year-old female who has already undergo neoadjuvant chemotherapy for infiltrating high-grade ductal carcinoma of the right breast. It was recommended she have a right modified mastectomy She understands the risks and benefits of the procedure and wished to proceed with the procedure. Consent was signed on chart. PROCEDURE: The patient was taken operating suite. She was prepped and draped in the sterile fashion. A surgical pause was performed. Skin incision was made that encompassed the nipple areolar complex, also incorporating the previous biopsy scar in a transverse oblique fashion. The superior flap was then raised in the avascular plane between the subcutaneous tissue and the breast tissue all the way up to the clavicle. This was then carried around medially to the sternum and to the anterior rectus sheath inferiorly and to the latissimus dorsi muscle laterally. Hemostasis was achieved. The pectoralis fascia, and the breast tissue were then excised from the pectoralis major muscle, going in a medial to lateral fashion. At the lateral border of the pectoralis major the breast tissue was then swung laterally and dissection was progressed under the muscle. At this time attention was then made to remove level 1, level 2 tram tissue. The pectoral muscles were then retracted medially and dissection was used to identify the axillary vein. The tram tissue was continued to be swept away. A small branch of axillary vein was dissected around and a clip was placed on the proximal portion and this was then transected. The thoracodorsal nerve and long thoracic nerve were identified which the tram tissue was continued to be swept away. Part of this tissue was removed, from the portion of the tissue, which the breast tissue and axillary contents were removed and sent to pathology. The remaining portion of the tram tissue was then grasped and elevated and dissected out and removed as well. At this time the wound was irrigated with copious amounts of irrigation and hemostasis had been achieved. Babar drains were then placed through 2 stab incisions on the inferior aspect and then one was placed in the axilla and the second was placed within the anterior portion of the pectoralis major. Of note, there does not appear to be any gross involvement of tumor into the pectoralis major as noted on the previous MRI. The subcutaneous tissues were then reapproximated using 3-0 Vicryl in a simple interrupted fashion. The skin was then closed using brenda. The area was then washed and dried and sterile bandage was applied. The patient also has a drain tubes secured with 3-0 nylon. Sterile bandages were then applied. The patient tolerated procedure well without any complications. She was taken to recovery room in stable condition. Job ID: [id number] Dictated Date: 08/08/2016 13:58:13 Health Data Administrator Date: 08/09/2016 12:28:06 / syl
== END 2016-08-07 15:15 | disposition home or self-care (01) ==
LOC: INTOOBSV 09:36 → 4TH 09:36 → UNDOADMOB 09:36 → SDC 09:36 → SURG 09:37 → 4TH 09:37 → EDSTATUS 11:30 → LDRP 14:40 → SURG 14:40 → LDRP 14:40 → UNDODISOB 08-07 15:15 → SDC 08-07 15:15
PROVIDERS: ATTEND Surgery
DX: C50.411 Malignant neoplasm of upper-outer quadrant of right female breast (principal); Z17.0 Estrogen receptor positive status [ER+]
CPT/HCPCS: 88309; 88360; 94664; 96375; 96376

== ENCOUNTER 2016-09-11 15:00 | Outpatient (RCR) | payer MEDICAID ==
--- OUTSIDE RECORDS SUMMARY | 2016-06-18 09:42 | XMS REPORT | Continuity of Care Document ---
Author Author [facility] Organization [facility] Address Unknown Phone Unavailable Care Team Providers Care Cloth Bale Header Name Role Phone LUDIN SALINAS MD PCP Insurance Providers Payer Name Policy Number Subscriber Name [facility] [id number] Jimenez Seymour 18 Self / Same As Patient Advance Directives Directive Response Recorded Date/Time Advance Directives No 03/12/16 10:00pm Health Care Power of Textile Examiner No 03/12/16 10:00pm Organ Donor No 03/12/16 10:00pm Problems Active Problems Medical Problem Onset Date [...] History Social History Problem Response Recorded Date/Time Recent Foreign Travel N see elaine 04/09/2016 8:35am Recent Hopitalizations No 03/12/2016 10:00pm Hospital Discharge Instructions No hospital discharge instructions. Plan of Care Prescriptions See Medication Section Functional Status No functional status results. Allergies, Adverse Reactions, Alerts Allergen Type Severity Reaction Status Last Updated Meperidine Allergy Unknown Active 02/03/16 ssri Adverse Reaction Unknown Active 03/12/16 Immunizations No immunization records. Vital Signs Acute Vital Signs Vital Response Date/Time Height 5 ft 5.5 in Weight 170 lb Body Mass Index 27.9 kg/m^2 Results Laboratory Results Test Name Result Units Flags Reference Collection Date/Time Result Date/ Time Comments White Blood Count 3.8 10^3/uL L 4.3-11.0 06/12/2016 1:35pm 06/12/2016 1: 48pm Red Blood Count 3.75 10^6/uL L 4.35-5.85 06/12/2016 1:35pm 06/12/2016 1: 48pm Hemoglobin 11.0 G/DL L 11.5-16.0 06/12/2016 1:35pm 06/12/2016 1:48pm Hematocrit 33 % L 35-52 06/12/2016 1:35pm 06/12/2016 1:48pm Mean Corpuscular Volume 87 FL 80-99 06/12/2016 1:35pm 06/12/2016 1: 48pm Mean Corpuscular Hemoglobin 29 PG 25-34 06/12/2016 1:35pm 06/12/2016 1: 48pm Mean Corpuscular Hemoglobin Concent 34 G/DL 32-36 06/12/2016 1:35pm 08/2016 1:48pm Red Cell Distribution Width 14.9 % H 10.0-14.5 06/12/2016 1:35pm 2016 1:48pm Platelet Count 324 10^3/uL 130-400 06/12/2016 1:35pm 06/12/2016 1:48pm Mean Platelet Volume 8.8 FL 7.4-10.4 06/12/2016 1:35pm 06/12/2016 1: 48pm Neutrophils (%) (Auto) 70 % 42-75 06/12/2016 1:35pm 06/12/2016 1:48pm Lymphocytes (%) (Auto) 15 % 12-44 06/12/2016 1:35pm 06/12/2016 1:48pm Monocytes (%) (Auto) 11 % 0-12 06/12/2016 1:35pm 06/12/2016 1:48pm Eosinophils (%) (Auto) 2 % 0-10 06/12/2016 1:35pm 06/12/2016 1:48pm Basophils (%) (Auto) 1 % 0-10 06/12/2016 1:35pm 06/12/2016 1:48pm Neutrophils # (Auto) 2.7 X 10^3 1.8-7.8 06/12/2016 1:35pm 06/12/2016 1: 48pm Lymphocytes # (Auto) 0.6 X 10^3 L 1.0-4.0 06/12/2016 1:35pm 06/12/2016 1: 48pm Monocytes # (Auto) 0.4 X 10^3 0.0-1.0 06/12/2016 1:35pm 06/12/2016 1: 48pm Eosinophils # (Auto) 0.1 10^3/uL 0.0-0.3 06/12/2016 1:35pm 06/12/2016 1 :48pm Basophils # (Auto) 0.0 10^3/uL 0.0-0.1 06/12/2016 1:35pm 06/12/2016 1: 48pm Smear Scan PLEASE CALL LAB IF A MANUAL DIFFERENTIAL IS NEEDED 2015 9:10am 04/20/2016 9:51am Sodium Level 140 MMOL/L 135-145 06/12/2016 1:35pm 06/12/2016 2:17pm Potassium Level 4.6 MMOL/L 3.6-5.0 06/12/2016 1:35pm 06/12/2016 2:17pm Chloride Level 108 MMOL/L H 98-107 06/12/2016 1:35pm 06/12/2016 2:17pm Carbon Dioxide Level 22 MMOL/L 21-32 06/12/2016 1:35pm 06/12/2016 2: 17pm Anion Gap 10 MMOL/L 5-14 06/12/2016 1:35pm 06/12/2016 2:17pm Blood Urea Nitrogen 10 MG/DL 7-18 06/12/2016 1:35pm 06/12/2016 2:17pm Creatinine 0.71 MG/DL 0.60-1.30 06/12/2016 1:35pm 06/12/2016 2:17pm BUN/Creatinine Ratio 14 06/12/2016 1:35pm 06/12/2016 2:17pm Estimat Glomerular Filtration Rate > 60 06/12/2016 1:35pm 2016 2:17pm GFR INTERPRETIVE DATA UNITS FOR ESTIMATED GFR (eGFR): mL/min/1.73 M2 REFERENCE RANGE FOR ESTIMATED GFR (eGFR) eGFR NORMAL eGFR >60 MODERATELY DECREASED eGFR 30-59 SEVERLY DECREASED eGFR 15-29 KIDNEY FAILURE <15 (OR DIALYSIS) Glucose Level 91 MG/DL 70-105 06/12/2016 1:35pm 06/12/2016 2:17pm Calcium Level 8.8 MG/DL 8.5-10.1 06/12/2016 1:35pm 06/12/2016 2:17pm Magnesium Level 2.1 MG/DL 1.8-2.4 05/28/2016 1:05pm 05/28/2016 1:49pm Total Bilirubin 0.5 MG/DL 0.1-1.0 05/28/2016 1:05pm 05/28/2016 1:49pm Alkaline Phosphatase 93 U/L 40-136 05/28/2016 1:05pm 05/28/2016 1:49pm Aspartate Amino Transf (AST/SGOT) 28 U/L 5-34 05/28/2016 1:05pm 2015 1:49pm Alanine Aminotransferase (ALT/SGPT) 45 U/L 0-55 05/28/2016 1:05pm 05/28 1:49pm Total Protein 6.9 G/DL 6.4-8.2 05/28/2016 1:05pm 05/28/2016 1:49pm Albumin 4.2 G/DL 3.2-4.5 05/28/2016 1:05pm 05/28/2016 1:49pm Procedures No known history of procedures. Encounters Encounter Location Arrival/Admit Date Discharge/Depart Date Attending Provider Discharged Recurring [facility] 06/12/16 1:17pm 11:59pm IRINA ROLAND
[2016-06-18 10:04] LABS: BASOPHILS % (AUTO) 1 % (0-10); EOSINOPHILS % (AUTO) 2 % (0-10); LYMPHOCYTES # (AUTO) 0.5 X 10^3 (1.0-4.0); LYMPHOCYTES % (AUTO) 19 % (12-44); MEAN CORPUSCULAR HEMOGLOBIN 29 PG (25-34); MEAN CORPUSCULAR HGB CONC 34 G/DL (32-36); MEAN CORPUSCULAR VOLUME 87 FL (80-99); MEAN PLATELET VOLUME 8.8 FL (7.4-10.4); MONOCYTES # (AUTO) 0.2 X 10^3 (0.0-1.0); MONOCYTES % (AUTO) 8 % (0-12); NEUTROPHILS # (AUTO) 1.8 X 10^3 (1.8-7.8); NEUTROPHILS % (AUTO) 70 % (42-75); PLATELET COUNT 336 10^3/uL (130-400); RED BLOOD COUNT 3.74 10^6/uL (4.35-5.85); RED CELL DISTRIBUTION WIDTH 14.9 % (10.0-14.5); WHITE BLOOD COUNT 2.6 10^3/uL (4.3-11.0)
[2016-06-18 10:29] LABS: ALANINE AMINOTRANSFERASE 46 U/L (0-55); ALBUMIN 4.2 G/DL (3.2-4.5); ANION GAP 8 MMOL/L (5-14); ASPARTATE AMINO TRANSFERASE 28 U/L (5-34); BILIRUBIN,TOTAL 0.6 MG/DL (0.1-1.0); BLOOD UREA NITROGEN 9 MG/DL (7-18); BUN/CREATININE RATIO 14; CARBON DIOXIDE 24 MMOL/L (21-32); CHLORIDE 105 MMOL/L (98-107); CREATININE SERUM 0.65 MG/DL (0.60-1.30); GFR ESTIMATED > 60; GLUCOSE 95 MG/DL (70-105); POTASSIUM 4.3 MMOL/L (3.6-5.0); SODIUM 137 MMOL/L (135-145); TOTAL PROTEIN 6.8 G/DL (6.4-8.2)
[2016-06-25 09:06] LABS: BASOPHILS % (AUTO) 1 % (0-10); EOSINOPHILS # (AUTO) 0.1 10^3/uL (0.0-0.3); EOSINOPHILS % (AUTO) 2 % (0-10); LYMPHOCYTES # (AUTO) 0.4 X 10^3 (1.0-4.0); LYMPHOCYTES % (AUTO) 12 % (12-44); MEAN CORPUSCULAR HEMOGLOBIN 29 PG (25-34); MEAN CORPUSCULAR HGB CONC 34 G/DL (32-36); MEAN CORPUSCULAR VOLUME 87 FL (80-99); MEAN PLATELET VOLUME 8.8 FL (7.4-10.4); MONOCYTES # (AUTO) 0.3 X 10^3 (0.0-1.0); MONOCYTES % (AUTO) 10 % (0-12); NEUTROPHILS # (AUTO) 2.4 X 10^3 (1.8-7.8); NEUTROPHILS % (AUTO) 75 % (42-75); PLATELET COUNT 340 10^3/uL (130-400); RED BLOOD COUNT 3.74 10^6/uL (4.35-5.85); RED CELL DISTRIBUTION WIDTH 14.9 % (10.0-14.5); WHITE BLOOD COUNT 3.2 10^3/uL (4.3-11.0)
[2016-06-25 09:30] LABS: ANION GAP 7 MMOL/L (5-14); BLOOD UREA NITROGEN 8 MG/DL (7-18); BUN/CREATININE RATIO 12; CALCIUM 9.1 MG/DL (8.5-10.1); CARBON DIOXIDE 24 MMOL/L (21-32); CHLORIDE 109 MMOL/L (98-107); CREATININE SERUM 0.68 MG/DL (0.60-1.30); GFR ESTIMATED > 60; GLUCOSE 84 MG/DL (70-105); POTASSIUM 3.5 MMOL/L (3.6-5.0); SODIUM 140 MMOL/L (135-145)
[2016-07-02 09:03] LABS: BASOPHILS % (AUTO) 1 % (0-10); EOSINOPHILS # (AUTO) 0.1 10^3/uL (0.0-0.3); EOSINOPHILS % (AUTO) 3 % (0-10); LYMPHOCYTES # (AUTO) 0.5 X 10^3 (1.0-4.0); LYMPHOCYTES % (AUTO) 15 % (12-44); MEAN CORPUSCULAR HEMOGLOBIN 30 PG (25-34); MEAN CORPUSCULAR HGB CONC 34 G/DL (32-36); MEAN CORPUSCULAR VOLUME 87 FL (80-99); MEAN PLATELET VOLUME 8.8 FL (7.4-10.4); MONOCYTES # (AUTO) 0.3 X 10^3 (0.0-1.0); MONOCYTES % (AUTO) 9 % (0-12); NEUTROPHILS # (AUTO) 2.5 X 10^3 (1.8-7.8); NEUTROPHILS % (AUTO) 72 % (42-75); PLATELET COUNT 311 10^3/uL (130-400); RED BLOOD COUNT 3.75 10^6/uL (4.35-5.85); RED CELL DISTRIBUTION WIDTH 15.2 % (10.0-14.5); WHITE BLOOD COUNT 3.4 10^3/uL (4.3-11.0)
[2016-07-02 09:25] LABS: ANION GAP 7 MMOL/L (5-14); BLOOD UREA NITROGEN 9 MG/DL (7-18); BUN/CREATININE RATIO 13; CALCIUM 8.4 MG/DL (8.5-10.1); CARBON DIOXIDE 22 MMOL/L (21-32); CHLORIDE 109 MMOL/L (98-107); CREATININE SERUM 0.68 MG/DL (0.60-1.30); GFR ESTIMATED > 60; GLUCOSE 86 MG/DL (70-105); POTASSIUM 3.6 MMOL/L (3.6-5.0); SODIUM 138 MMOL/L (135-145)
[2016-07-09 08:50] LABS: BASOPHILS % (AUTO) 1 % (0-10); EOSINOPHILS # (AUTO) 0.1 10^3/uL (0.0-0.3); EOSINOPHILS % (AUTO) 4 % (0-10); LYMPHOCYTES # (AUTO) 0.4 X 10^3 (1.0-4.0); LYMPHOCYTES % (AUTO) 12 % (12-44); MEAN CORPUSCULAR HEMOGLOBIN 29 PG (25-34); MEAN CORPUSCULAR HGB CONC 34 G/DL (32-36); MEAN CORPUSCULAR VOLUME 86 FL (80-99); MONOCYTES # (AUTO) 0.4 X 10^3 (0.0-1.0); MONOCYTES % (AUTO) 13 % (0-12); NEUTROPHILS # (AUTO) 2.2 X 10^3 (1.8-7.8); NEUTROPHILS % (AUTO) 70 % (42-75); PLATELET COUNT 334 10^3/uL (130-400); RED BLOOD COUNT 4.02 10^6/uL (4.35-5.85); WHITE BLOOD COUNT 3.2 10^3/uL (4.3-11.0)
[2016-07-09 09:13] LABS: ALANINE AMINOTRANSFERASE 27 U/L (0-55); ALBUMIN 4.2 G/DL (3.2-4.5); ANION GAP 9 MMOL/L (5-14); ASPARTATE AMINO TRANSFERASE 23 U/L (5-34); BILIRUBIN,TOTAL 0.6 MG/DL (0.1-1.0); BLOOD UREA NITROGEN 7 MG/DL (7-18); BUN/CREATININE RATIO 10; CALCIUM 9.3 MG/DL (8.5-10.1); CARBON DIOXIDE 24 MMOL/L (21-32); CHLORIDE 107 MMOL/L (98-107); CREATININE SERUM 0.72 MG/DL (0.60-1.30); GFR ESTIMATED > 60; GLUCOSE 91 MG/DL (70-105); POTASSIUM 3.8 MMOL/L (3.6-5.0); SODIUM 140 MMOL/L (135-145)
[2016-07-16 09:11] LABS: BASOPHILS % (AUTO) 1 % (0-10); EOSINOPHILS # (AUTO) 0.1 10^3/uL (0.0-0.3); EOSINOPHILS % (AUTO) 3 % (0-10); LYMPHOCYTES # (AUTO) 0.5 X 10^3 (1.0-4.0); LYMPHOCYTES % (AUTO) 13 % (12-44); MEAN CORPUSCULAR HEMOGLOBIN 29 PG (25-34); MEAN CORPUSCULAR HGB CONC 33 G/DL (32-36); MEAN CORPUSCULAR VOLUME 87 FL (80-99); MEAN PLATELET VOLUME 8.8 FL (7.4-10.4); MONOCYTES # (AUTO) 0.4 X 10^3 (0.0-1.0); MONOCYTES % (AUTO) 10 % (0-12); NEUTROPHILS # (AUTO) 2.6 X 10^3 (1.8-7.8); NEUTROPHILS % (AUTO) 73 % (42-75); PLATELET COUNT 322 10^3/uL (130-400); RED BLOOD COUNT 3.77 10^6/uL (4.35-5.85); RED CELL DISTRIBUTION WIDTH 15.1 % (10.0-14.5); WHITE BLOOD COUNT 3.6 10^3/uL (4.3-11.0)
[2016-07-16 09:50] LABS: ANION GAP 8 MMOL/L (5-14); BLOOD UREA NITROGEN 8 MG/DL (7-18); BUN/CREATININE RATIO 11; CALCIUM 8.8 MG/DL (8.5-10.1); CARBON DIOXIDE 23 MMOL/L (21-32); CHLORIDE 107 MMOL/L (98-107); CREATININE SERUM 0.71 MG/DL (0.60-1.30); GFR ESTIMATED > 60; GLUCOSE 89 MG/DL (70-105); POTASSIUM 4.1 MMOL/L (3.6-5.0); SODIUM 138 MMOL/L (135-145)
[2016-07-24 10:55] LABS: BASOPHILS % (AUTO) 1 % (0-10); EOSINOPHILS # (AUTO) 0.1 10^3/uL (0.0-0.3); EOSINOPHILS % (AUTO) 3 % (0-10); LYMPHOCYTES # (AUTO) 0.6 X 10^3 (1.0-4.0); LYMPHOCYTES % (AUTO) 18 % (12-44); MEAN CORPUSCULAR HEMOGLOBIN 29 PG (25-34); MEAN CORPUSCULAR HGB CONC 33 G/DL (32-36); MEAN CORPUSCULAR VOLUME 87 FL (80-99); MEAN PLATELET VOLUME 8.9 FL (7.4-10.4); MONOCYTES # (AUTO) 0.6 X 10^3 (0.0-1.0); MONOCYTES % (AUTO) 17 % (0-12); NEUTROPHILS # (AUTO) 2.2 X 10^3 (1.8-7.8); NEUTROPHILS % (AUTO) 62 % (42-75); PLATELET COUNT 339 10^3/uL (130-400); RED BLOOD COUNT 3.82 10^6/uL (4.35-5.85); RED CELL DISTRIBUTION WIDTH 15.4 % (10.0-14.5); WHITE BLOOD COUNT 3.5 10^3/uL (4.3-11.0)
[2016-07-24 11:36] LABS: ALANINE AMINOTRANSFERASE 25 U/L (0-55); ANION GAP 9 MMOL/L (5-14); ASPARTATE AMINO TRANSFERASE 25 U/L (5-34); BILIRUBIN,TOTAL 0.5 MG/DL (0.1-1.0); BLOOD UREA NITROGEN 7 MG/DL (7-18); BUN/CREATININE RATIO 10; CALCIUM 9.3 MG/DL (8.5-10.1); CARBON DIOXIDE 25 MMOL/L (21-32); CHLORIDE 105 MMOL/L (98-107); CREATININE SERUM 0.69 MG/DL (0.60-1.30); GFR ESTIMATED > 60; GLUCOSE 89 MG/DL (70-105); SODIUM 139 MMOL/L (135-145); TOTAL PROTEIN 6.9 G/DL (6.4-8.2)
[2016-07-31 12:57] LABS: BASOPHILS % (AUTO) 1 % (0-10); EOSINOPHILS # (AUTO) 0.1 10^3/uL (0.0-0.3); EOSINOPHILS % (AUTO) 2 % (0-10); LYMPHOCYTES # (AUTO) 0.7 X 10^3 (1.0-4.0); LYMPHOCYTES % (AUTO) 13 % (12-44); MEAN CORPUSCULAR HEMOGLOBIN 28 PG (25-34); MEAN CORPUSCULAR HGB CONC 33 G/DL (32-36); MEAN CORPUSCULAR VOLUME 86 FL (80-99); MONOCYTES # (AUTO) 0.7 X 10^3 (0.0-1.0); MONOCYTES % (AUTO) 12 % (0-12); NEUTROPHILS # (AUTO) 4.1 X 10^3 (1.8-7.8); NEUTROPHILS % (AUTO) 72 % (42-75); PLATELET COUNT 329 10^3/uL (130-400); RED BLOOD COUNT 4.09 10^6/uL (4.35-5.85); RED CELL DISTRIBUTION WIDTH 14.9 % (10.0-14.5); WHITE BLOOD COUNT 5.6 10^3/uL (4.3-11.0)
[2016-07-31 13:44] LABS: ALANINE AMINOTRANSFERASE 31 U/L (0-55); ALBUMIN 4.2 G/DL (3.2-4.5); ANION GAP 10 MMOL/L (5-14); ASPARTATE AMINO TRANSFERASE 29 U/L (5-34); BILIRUBIN,TOTAL 0.6 MG/DL (0.1-1.0); BLOOD UREA NITROGEN 13 MG/DL (7-18); BUN/CREATININE RATIO 17; CALCIUM 9.4 MG/DL (8.5-10.1); CARBON DIOXIDE 27 MMOL/L (21-32); CHLORIDE 104 MMOL/L (98-107); CREATININE SERUM 0.75 MG/DL (0.60-1.30); GFR ESTIMATED > 60; GLUCOSE 102 MG/DL (70-105); POTASSIUM 3.9 MMOL/L (3.6-5.0); SODIUM 141 MMOL/L (135-145); TOTAL PROTEIN 7.2 G/DL (6.4-8.2)
[2016-08-22 13:06] LABS: BASOPHILS % (AUTO) 0 % (0-10); EOSINOPHILS # (AUTO) 0.4 10^3/uL (0.0-0.3); EOSINOPHILS % (AUTO) 7 % (0-10); LYMPHOCYTES # (AUTO) 0.7 X 10^3 (1.0-4.0); LYMPHOCYTES % (AUTO) 14 % (12-44); MEAN CORPUSCULAR HEMOGLOBIN 28 PG (25-34); MEAN CORPUSCULAR HGB CONC 33 G/DL (32-36); MEAN CORPUSCULAR VOLUME 86 FL (80-99); MEAN PLATELET VOLUME 9.3 FL (7.4-10.4); MONOCYTES # (AUTO) 0.4 X 10^3 (0.0-1.0); MONOCYTES % (AUTO) 8 % (0-12); NEUTROPHILS # (AUTO) 3.5 X 10^3 (1.8-7.8); NEUTROPHILS % (AUTO) 71 % (42-75); PLATELET COUNT 315 10^3/uL (130-400); RED BLOOD COUNT 4.18 10^6/uL (4.35-5.85); RED CELL DISTRIBUTION WIDTH 13.4 % (10.0-14.5); WHITE BLOOD COUNT 4.9 10^3/uL (4.3-11.0)
[2016-08-22 14:00] LABS: ALANINE AMINOTRANSFERASE 17 U/L (0-55); ANION GAP 12 MMOL/L (5-14); ASPARTATE AMINO TRANSFERASE 20 U/L (5-34); BILIRUBIN,TOTAL 0.5 MG/DL (0.1-1.0); BLOOD UREA NITROGEN 8 MG/DL (7-18); BUN/CREATININE RATIO 11; CALCIUM 9.4 MG/DL (8.5-10.1); CARBON DIOXIDE 24 MMOL/L (21-32); CHLORIDE 103 MMOL/L (98-107); CREATININE SERUM 0.75 MG/DL (0.60-1.30); GFR ESTIMATED > 60; GLUCOSE 89 MG/DL (70-105); POTASSIUM 3.4 MMOL/L (3.6-5.0); SODIUM 139 MMOL/L (135-145)
[~2016-09-11] VITALS: Ht 166.4 cm; Wt 82.1 kg
[~2016-09-11 15:00] MED LIST changes: +DOCU-143 PO; +FAMOTIDINE 20MG/2ML IV (CANCER CTR) IV SCH; +HYDR-3812 PO; +LORazepam 0.5 MG (ATIVAN) TABLET CANCER CTR PO PRN; +NS IV 500 ML (CANCER CENTER) IV SCH; +NS IV SCH; +ONDANSETRON 16 MG, DEXAMETHASONE 10 MG/NS 50 ML IVPB IV SCH; +PACLITAXEL 110 MG in NS (IVPB) CANCER CENTER 250 ML IV SCH; +PACLITAXEL SEMI SYNTHETIC IV SCH; +diphenhydrAMINE 25 MG TAB (BENADRYL) CANCER CENTER PO SCH
== END 2016-09-16 | disposition home or self-care (01) ==
LOC: ONC 15:00
PROVIDERS: ATTEND Internal Medicine Hematology & Oncology
DX: Z51.0 Encounter for antineoplastic radiation therapy (principal); Z51.11 Encounter for antineoplastic chemotherapy; C50.411 Malignant neoplasm of upper-outer quadrant of right female breast; C77.3 Secondary and unspecified malignant neoplasm of axilla and upper limb lymph nodes; Z17.0 Estrogen receptor positive status [ER+]; Z80.3 Family history of malignant neoplasm of breast; Z90.11 Acquired absence of right breast and nipple
CPT/HCPCS: 36415; 36591; 77290; 77295; 77332; 77334; 77470; 80048; 80053; 85025; 96375; 96413; 99213; 99214

== ENCOUNTER → 2016-11-08 | Outpatient (CLI) | payer MEDICAID ==
[~2016-11-08] MED LIST changes: -FAMOTIDINE 20MG/2ML IV (CANCER CTR) IV SCH; -LORazepam 0.5 MG (ATIVAN) TABLET CANCER CTR PO PRN; -NS IV 500 ML (CANCER CENTER) IV SCH; -NS IV SCH; -ONDANSETRON 16 MG, DEXAMETHASONE 10 MG/NS 50 ML IVPB IV SCH; -PACLITAXEL 110 MG in NS (IVPB) CANCER CENTER 250 ML IV SCH; -PACLITAXEL SEMI SYNTHETIC IV SCH; -diphenhydrAMINE 25 MG TAB (BENADRYL) CANCER CENTER PO SCH
--- NOTE | 2016-11-08 14:22 | Diagnostic Imaging Report ---
Examination: DEXA scan. Indication: Secondary amenorrhea. Technique: Bone mineral density estimated based on dual energy radiography over the lumbar spine and femoral necks, was performed. Findings: The lumbar spine T-score is 0.9. T score over the left femoral neck is 1.6 and over the right side is 1.5. IMPRESSION: Normal bone mineral density. Dictated by: Dictated on workstation # [id number]
== END ==
LOC: RAD 08:54
PROVIDERS: ATTEND Nurse Practitioner Adult Health
DX: N91.1 Secondary amenorrhea (principal); C50.411 Malignant neoplasm of upper-outer quadrant of right female breast; Z78.0 Asymptomatic menopausal state
CPT/HCPCS: 77080

== ENCOUNTER 2016-12-05 08:41 | Outpatient (RCR) | payer MEDICAID ==
[2016-09-27 13:26] LABS: BASOPHILS % (AUTO) 0 % (0-10); EOSINOPHILS # (AUTO) 0.3 10^3/uL (0.0-0.3); EOSINOPHILS % (AUTO) 6 % (0-10); LYMPHOCYTES # (AUTO) 0.7 X 10^3 (1.0-4.0); LYMPHOCYTES % (AUTO) 15 % (12-44); MEAN CORPUSCULAR HEMOGLOBIN 28 PG (25-34); MEAN CORPUSCULAR HGB CONC 33 G/DL (32-36); MEAN CORPUSCULAR VOLUME 85 FL (80-99); MEAN PLATELET VOLUME 9.5 FL (7.4-10.4); MONOCYTES # (AUTO) 0.6 X 10^3 (0.0-1.0); MONOCYTES % (AUTO) 12 % (0-12); NEUTROPHILS # (AUTO) 3.1 X 10^3 (1.8-7.8); NEUTROPHILS % (AUTO) 67 % (42-75); PLATELET COUNT 258 10^3/uL (130-400); RED BLOOD COUNT 4.26 10^6/uL (4.35-5.85); WHITE BLOOD COUNT 4.6 10^3/uL (4.3-11.0)
[2016-09-27 14:28] LABS: ALANINE AMINOTRANSFERASE 23 U/L (0-55); ALBUMIN 4.2 G/DL (3.2-4.5); ANION GAP 10 MMOL/L (5-14); ASPARTATE AMINO TRANSFERASE 25 U/L (5-34); BILIRUBIN,TOTAL 0.5 MG/DL (0.1-1.0); BLOOD UREA NITROGEN 11 MG/DL (7-18); BUN/CREATININE RATIO 15; CALCIUM 9.4 MG/DL (8.5-10.1); CARBON DIOXIDE 24 MMOL/L (21-32); CHLORIDE 105 MMOL/L (98-107); CREATININE SERUM 0.72 MG/DL (0.60-1.30); GFR ESTIMATED > 60; GLUCOSE 84 MG/DL (70-105); POTASSIUM 3.9 MMOL/L (3.6-5.0); SODIUM 139 MMOL/L (135-145); TOTAL PROTEIN 7.2 G/DL (6.4-8.2)
[2016-11-07 09:26] LABS: BASOPHILS % (AUTO) 0 % (0-10); EOSINOPHILS # (AUTO) 0.2 10^3/uL (0.0-0.3); EOSINOPHILS % (AUTO) 5 % (0-10); LYMPHOCYTES # (AUTO) 0.5 X 10^3 (1.0-4.0); LYMPHOCYTES % (AUTO) 13 % (12-44); MEAN CORPUSCULAR HEMOGLOBIN 27 PG (25-34); MEAN CORPUSCULAR HGB CONC 33 G/DL (32-36); MEAN CORPUSCULAR VOLUME 82 FL (80-99); MEAN PLATELET VOLUME 9.4 FL (7.4-10.4); MONOCYTES # (AUTO) 0.3 X 10^3 (0.0-1.0); MONOCYTES % (AUTO) 8 % (0-12); NEUTROPHILS # (AUTO) 2.8 X 10^3 (1.8-7.8); NEUTROPHILS % (AUTO) 75 % (42-75); PLATELET COUNT 245 10^3/uL (130-400); RED BLOOD COUNT 4.42 10^6/uL (4.35-5.85); RED CELL DISTRIBUTION WIDTH 13.8 % (10.0-14.5); WHITE BLOOD COUNT 3.7 10^3/uL (4.3-11.0)
[2016-11-07 10:01] LABS: ALANINE AMINOTRANSFERASE 16 U/L (0-55); ALBUMIN 4.1 G/DL (3.2-4.5); ANION GAP 9 MMOL/L (5-14); ASPARTATE AMINO TRANSFERASE 20 U/L (5-34); BILIRUBIN,TOTAL 0.6 MG/DL (0.1-1.0); BLOOD UREA NITROGEN 10 MG/DL (7-18); BUN/CREATININE RATIO 14; CALCIUM 9.3 MG/DL (8.5-10.1); CARBON DIOXIDE 24 MMOL/L (21-32); CHLORIDE 107 MMOL/L (98-107); GFR ESTIMATED > 60; GLUCOSE 98 MG/DL (70-105); POTASSIUM 3.9 MMOL/L (3.6-5.0); SODIUM 140 MMOL/L (135-145); TOTAL PROTEIN 7.4 G/DL (6.4-8.2)
[2016-12-05 08:49] LABS: BASOPHILS % (AUTO) 1 % (0-10); EOSINOPHILS # (AUTO) 0.2 10^3/uL (0.0-0.3); EOSINOPHILS % (AUTO) 4 % (0-10); LYMPHOCYTES # (AUTO) 0.4 X 10^3 (1.0-4.0); LYMPHOCYTES % (AUTO) 12 % (12-44); MEAN CORPUSCULAR HEMOGLOBIN 28 PG (25-34); MEAN CORPUSCULAR HGB CONC 34 G/DL (32-36); MEAN CORPUSCULAR VOLUME 82 FL (80-99); MEAN PLATELET VOLUME 9.5 FL (7.4-10.4); MONOCYTES # (AUTO) 0.4 X 10^3 (0.0-1.0); MONOCYTES % (AUTO) 11 % (0-12); NEUTROPHILS # (AUTO) 2.6 X 10^3 (1.8-7.8); NEUTROPHILS % (AUTO) 72 % (42-75); PLATELET COUNT 224 10^3/uL (130-400); RED BLOOD COUNT 4.37 10^6/uL (4.35-5.85); RED CELL DISTRIBUTION WIDTH 14.1 % (10.0-14.5); WHITE BLOOD COUNT 3.5 10^3/uL (4.3-11.0)
[2016-12-05 09:46] LABS: ALANINE AMINOTRANSFERASE 24 U/L (0-55); ALBUMIN 4.1 GM/DL (3.2-4.5); ANION GAP 8 MMOL/L (5-14); ASPARTATE AMINO TRANSFERASE 24 U/L (5-34); BILIRUBIN,TOTAL 0.8 MG/DL (0.1-1.0); BLOOD UREA NITROGEN 11 MG/DL (7-18); BUN/CREATININE RATIO 14; CALCIUM 9.8 MG/DL (8.5-10.1); CARBON DIOXIDE 29 MMOL/L (21-32); CHLORIDE 103 MMOL/L (98-107); CREATININE SERUM 0.78 MG/DL (0.60-1.30); GFR ESTIMATED > 60; GLUCOSE 85 MG/DL (70-105); HEMOLYSIS 5 (-100-29); ICTERUS 0.6 (-100-1.9); LIPEMIA 4 (-100-49); POTASSIUM 4.1 MMOL/L (3.6-5.0); SODIUM 140 MMOL/L (135-145); TOTAL PROTEIN 7.9 GM/DL (6.4-8.2)
== END 2016-12-16 | disposition home or self-care (01) ==
LOC: ONC 08:41
PROVIDERS: ATTEND Internal Medicine Hematology & Oncology
DX: Z51.0 Encounter for antineoplastic radiation therapy (principal); C50.411 Malignant neoplasm of upper-outer quadrant of right female breast; Z17.0 Estrogen receptor positive status [ER+]; E55.9 Vitamin D deficiency, unspecified; L58.0 Acute radiodermatitis; G43.909 Migraine, unspecified, not intractable, without status migrainosus; E66.9 Obesity, unspecified; Z68.30 Body mass index [BMI] 30.0-30.9, adult; Z80.3 Family history of malignant neoplasm of breast; Z45.2 Encounter for adjustment and management of vascular access device; Z79.811 Long term (current) use of aromatase inhibitors; Z79.899 Other long term (current) drug therapy
CPT/HCPCS: 36415; 36591; 77290; 77300; 77332; 77334; 77336; 77417; 80053; 82306; 85025; 96523; 99213

== ENCOUNTER → 2016-12-18 | Outpatient (CLI) | payer MEDICAID ==
[~2016-12-18] MED LIST changes: +IOHEXOL 350 MG/ML 100 ML (OMNIPAQUE 350) VIAL IV ONE; +NS 100 ML (IVPB) BAG IV ONE
--- NOTE | 2016-12-18 14:35 | Diagnostic Imaging Report ---
PROCEDURE: CT chest with contrast, CT abdomen with and without contrast. TECHNIQUE: Precontrast acquisitions were acquired through the abdomen. Multiple contiguous axial images were obtained through the chest and abdomen after administration of intravenous contrast. INDICATION: Breast cancer. FINDINGS: CHEST: Right breast is surgically absent. No suspicious chest wall mass or fluid collection. Some mild thickening of the right chest wall skin and subcutaneous fat, which is likely on a post-therapeutic basis. Portions of the left breast laterally extend outside the field of view. There are postsurgical clips in the right axilla with no axillary lymphadenopathy. No adenopathy or abnormal tissue along the internal mammary chains. Remaining mediastinal and hilar tram stations appeared normal. No lung mass. No acute infiltrate. No effusion. ABDOMEN AND PELVIS: A right hepatic lobe cyst posteriorly showed no complexity, 1.5 cm. A few smaller cysts in the left and right lobes noted. No solid, enhancing, nor suspicious liver mass. No findings felt suggestive of hepatic metastases. Spleen and adrenals are negative, and the pancreas is unremarkable. Kidneys are unobstructed. There is no adrenal mass. There is no abdominal mesenteric or retroperitoneal lymphadenopathy. There is no abdominal ascites or fluid collection. There is no suspicious osseous lesion. IMPRESSION: Postoperative and post-therapeutic changes. Benign hepatic cysts. There were no findings to suggest thoracic or abdominal involvement by malignancy. No acute appearing abnormality. Dictated by: Dictated on workstation # [id number]
== END ==
LOC: RAD 13:46
PROVIDERS: ATTEND Internal Medicine Hematology & Oncology
DX: K76.89 Other specified diseases of liver (principal); Z90.11 Acquired absence of right breast and nipple; C50.411 Malignant neoplasm of upper-outer quadrant of right female breast
CPT/HCPCS: 71260; 74170

== ENCOUNTER → 2016-12-21 | Outpatient (CLI) | payer MEDICAID ==
[~2016-12-21] MED LIST changes: -IOHEXOL 350 MG/ML 100 ML (OMNIPAQUE 350) VIAL IV ONE; -NS 100 ML (IVPB) BAG IV ONE
--- NOTE | 2016-12-24 09:11 | Diagnostic Imaging Report ---
EXAMINATION: Left breast screening mammogram with tomographic evaluation. COMPARISON: 09/05/15 exam. INDICATION: Screening with no current symptoms. The patient has had recent right mastectomy for breast cancer. The current study was also evaluated with a Computer Aided Detection (CAD) system. FINDINGS: There is a focal asymmetry measuring around 9 mm in size with lobulated margins and suggestion of central lucency seen slightly more prominent compared to the prior exam within the medial upper aspect of the left breast. This is evaluated on tomography views and is suggestive of a circumscribed margins. This is probably an intramammary lymph node. There is otherwise scattered fibroglandular densities with scattered benign-appearing calcifications. A port reservoir and portion of catheter projects over the axillary region of the left breast. IMPRESSION: 9 mm lobulated mass in the medial upper aspect of the left breast with features in favor of an intramammary lymph node. Ultrasound evaluation is recommended. BI-RADS 0. ACR BI-RADS Category 0: Incomplete. (Needs additional imaging evaluation). Result letter will be mailed to the patient. Note: At least 10% of breast cancer is not imaged by mammography. Dictated by: Dictated on workstation # [id number]
== END ==
LOC: RAD 09:23
PROVIDERS: ATTEND Nurse Practitioner Adult Health
DX: Z12.31 Encounter for screening mammogram for malignant neoplasm of breast (principal); R59.0 Localized enlarged lymph nodes; C50.411 Malignant neoplasm of upper-outer quadrant of right female breast; Z90.11 Acquired absence of right breast and nipple

== ENCOUNTER → 2017-01-01 | Outpatient (CLI) | payer MEDICAID ==
[~2017-01-01] MED LIST changes: +ANAS1TAB7 PO; +CALC-794 PO; +MULT-35 PO; +UBID100C17 PO
--- NOTE | 2017-01-01 16:43 | Diagnostic Imaging Report ---
EXAMINATION: Left breast ultrasound. INDICATION: Focal asymmetry in the medial upper aspect of the left breast. FINDINGS: At the 10 o'clock zone 8 cm from the nipple, there is a 0.9 x 0.5 x 0.8 cm hyperechoic lobulated mass with vascularity seen adjacent to it. This matches the size and location of the abnormality seen on mammography with the findings based on ultrasound in favor of fibroglandular tissue standing out between the fat lobules. No internal vascularity with color Doppler seen. IMPRESSION: There is a 0.9 cm lobulated hyperechoic lesion in the 10 o'clock zone 8 cm from the nipple with features in favor of a benign etiology. Ultrasound and mammogram followup in 6 months would be recommended to ensure no adverse development. ACR BI-RADS Category 3: Probably benign findings. Dictated by: Dictated on workstation # [id number]
== END ==
LOC: RAD 08:43
PROVIDERS: ATTEND Internal Medicine Hematology & Oncology
DX: N63 Unspecified lump in breast (principal); Z85.3 Personal history of malignant neoplasm of breast
CPT/HCPCS: 76642

== ENCOUNTER → 2017-01-22 | Outpatient (CLI) | payer MEDICAID | LOC: PREOP 11:48 | PROVIDERS: ATTEND Surgery | DX: Z01.818 Encounter for other preprocedural examination (principal); C50.911 Malignant neoplasm of unspecified site of right female breast ==

== ENCOUNTER 2017-01-24 05:55 | Day surgery (SDC) | payer MEDICAID ==
[~2017-01-24] VITALS: Ht 167.6 cm; Wt 84.6 kg
[2017-01-24] MEDS: LACTATED RINGERS 1,000 ML IV PRN ×2 (06:30→07:11)
[2017-01-24] MEDS ORDERED: ceFAZolin 2 GM/50 ML NS 50 ML ONE (06:34)
[2017-01-24] MEDS ORDERED: MIDAZOLAM 2 MG/2 ML (VERSED) VIAL ONE (06:50)
[2017-01-24] MEDS ORDERED: LACTATED RINGERS 1,000 ML IV ONE (06:50)
[2017-01-24] MEDS ORDERED: PROPOFOL INJECTION 50 ML IV ONE (06:50)
[2017-01-24] MEDS ORDERED: ceFAZolin 2 GM/NS 50 ML IV ONE (07:00)
[2017-01-24 07:19] VITALS: BP 117/73
[2017-01-24] MEDS ORDERED: BUPIVACAINE 0.5% 30 ML (SENSORCAINE) VIAL ONE (07:21)
[2017-01-24] MEDS ORDERED: LIDOCAINE 1% INJ 20 ML (XYLOCAINE) VIAL ONE (07:21)
--- NOTE | 2017-01-24 07:50 | Progress Note-Pre Operative ---
Pre-Operative Progress Note H&P Reviewed The H&P was reviewed, patient examined and no changes noted. Date Seen by Provider: Jan 24, 2017 Time Seen by Provider: 07:35 Date H&P Reviewed: Jan 24, 2017 Time H&P Reviewed: 07:35 Pre-Operative Diagnosis: history of breast cancer CALEB BRITT DO Jan 24, 2017 7:50 am
[2017-01-24] MEDS ORDERED: ONDANSETRON 4 MG/2 ML (SDV) Z0FRAN ONE (08:14)
--- NOTE | 2017-01-24 08:21 | Progress Note-Post Operative ---
Post-Operative Progess Note Surgeon (s)/Electrical Lineworker (s) Surgeon CALEB BRITT DO Electrical Lineworker: na Pre-Operative Diagnosis History of Breast Cancer Post-Operative Diagnosis same Procedure & Operative Findings Date of Procedure 01/24/17 Procedure Performed/Findings port removal Anesthesia Type mac Estimated Blood Loss Estimated blood loss (mL): min Specimens/Packing Specimens Removed CALEB Clark DO Jan 24, 2017 8:21 am
--- NOTE | 2017-01-24 08:24 | Discharge Inst-Simple/Standard ---
Discharge Inst-Standard Patient Instructions/Follow Up Plan of Care/Instructions/FU: 2 weeks Tanika Activity as Tolerated: Yes Discharge Diet: Regular Diet Other Inst to Patient Follow up Appt: Make appointment for 2 week. Instructions: No lifting greater than 10 pounds. No strenuous activity. May shower in 24 hours, no tub bath or soaking. Use incentive spirometer at home as directed. No Smoking Skin/Wound Care: You have special glue over incision it will fall off on its own. Symptoms to Report: Appetite Changes, Extremity Discoloration, Numbness/Tingling, Swelling Increased , Bleeding Excessive, Eyesight Changes, Pain Increased, Urine Color Change, Constipation(Persistent), Fever over 101 degree F, Pain/Pressure in chest, Urinating Difficulty, Cough Up/Vomit Blood, Heart Beat Irreg/Pounding, Pain/ Pressure in jaw, Vaginal Bleeding Increase, Cramps in feet or legs, Lightheadedness, Pain/Pressure in shoulder, Diarrhea(Persistent), Memory Changes Suddenly, Questions/Concerns, Weight gain consecutive days, Dizziness/ Fainting, Nausea/Vomiting, Shortness of Breath, Weight gain over 2 pounds If questions or concerns contact your physician Or seek help at emergency department. CALEB BRITT DO Jan 24, 2017 8:24 am
[2017-01-24 08:55] VITALS: BP 156/93
[2017-01-24 09:25] VITALS: BP 163/97
--- NOTE | 2017-01-25 09:27 | OPERATIVE REPORT ---
DATE OF SERVICE: 01/24/2017 PREOPERATIVE DIAGNOSIS: History of breast cancer. POSTOPERATIVE DIAGNOSIS: History of breast cancer. PROCEDURE PERFORMED: Port removal. SURGEON: Caleb Sagastume DO. ANESTHESIA: General. ESTIMATED BLOOD LOSS: Minimal. COMPLICATIONS: None. INDICATIONS: The patient is a 56-year-old female with a history of breast cancer. She has a port placed. As she is having discomfort with, she wished to have it removed. The patient understood possibly have to have a MediPort placed later if any recurrence and she still wishes to have this removed at this time. She understands risks and benefits, and consent was signed and on the chart. DESCRIPTION OF PROCEDURE: The patient was taken to the operating suite. She was prepped and draped in sterile fashion. Surgical pause was performed. Local anesthetic with 0.5% Marcaine and 1% lidocaine 50:50 ratio was used to anesthetize the area. A #15 blade scalpel was used to make an incision over skin. Cautery was used to dissect down to the port, which was then grasped and the catheter was removed and the port was removed as well. Once port was removed, the wound was irrigated with copious amounts of irrigation. The subcutaneous tissues were then reapproximated using 3-0 Vicryl. Skin was then closed using 4-0 Vicryl. The area was then washed and dried; Dermabond was placed over the incision. The patient tolerated the procedure well without any complications. She was taken to the recovery room in stable condition. Job ID: [id number] DocumentID: [id number] Dictated Date: 01/24/2017 08:26:33 Portable Sawyer Date: 01/24/2017 20:37:03 Dictated By: CALEB SAGASTUME DO
== END 2017-01-24 09:37 | disposition home or self-care (01) ==
LOC: SDC 05:55
PROVIDERS: ATTEND Surgery
DX: T82.848A Pain due to vascular prosthetic devices, implants and grafts, initial encounter (principal); Z85.3 Personal history of malignant neoplasm of breast; Z08 Encounter for follow-up examination after completed treatment for malignant neoplasm; F41.9 Anxiety disorder, unspecified; Z79.899 Other long term (current) drug therapy
CPT/HCPCS: 84703; 87081

== ENCOUNTER 2017-03-01 09:52 | Outpatient (RCR) | payer MEDICAID ==
[~2017-03-01] VITALS: Ht 166.4 cm; Wt 82.1 kg
[~2017-03-01 09:52] MED LIST changes: +FAMOTIDINE 20MG/2ML IV (CANCER CTR) IV SCH; +NORMAL SALINE IV SCH; +NS IV 500 ML (CANCER CENTER) IV SCH; +ONDANSETRON 16 MG, DEXAMETHASONE 10 MG/NS 50 ML IVPB IV SCH; +PACLITAXEL IV SCH; +diphenhydrAMINE 25 MG TAB (BENADRYL) CANCER CENTER PO SCH
[2017-03-01 10:08] LABS: BASOPHILS % (AUTO) 0 % (0-10); EOSINOPHILS # (AUTO) 0.2 10^3/uL (0.0-0.3); EOSINOPHILS % (AUTO) 4 % (0-10); LYMPHOCYTES # (AUTO) 0.8 X 10^3 (1.0-4.0); LYMPHOCYTES % (AUTO) 15 % (12-44); MEAN CORPUSCULAR HEMOGLOBIN 28 PG (25-34); MEAN CORPUSCULAR HGB CONC 33 G/DL (32-36); MEAN CORPUSCULAR VOLUME 85 FL (80-99); MEAN PLATELET VOLUME 9.3 FL (7.4-10.4); MONOCYTES # (AUTO) 0.5 X 10^3 (0.0-1.0); MONOCYTES % (AUTO) 9 % (0-12); NEUTROPHILS # (AUTO) 3.6 X 10^3 (1.8-7.8); NEUTROPHILS % (AUTO) 72 % (42-75); PLATELET COUNT 245 10^3/uL (130-400); RED BLOOD COUNT 4.48 10^6/uL (4.35-5.85); RED CELL DISTRIBUTION WIDTH 13.8 % (10.0-14.5)
[2017-03-01 10:25] LABS: ALANINE AMINOTRANSFERASE 19 U/L (0-55); ALBUMIN 4.2 GM/DL (3.2-4.5); ANION GAP 7 MMOL/L (5-14); ASPARTATE AMINO TRANSFERASE 19 U/L (5-34); BILIRUBIN,TOTAL 0.8 MG/DL (0.1-1.0); BLOOD UREA NITROGEN 9 MG/DL (7-18); BUN/CREATININE RATIO 12; CALCIUM 9.6 MG/DL (8.5-10.1); CARBON DIOXIDE 29 MMOL/L (21-32); CHLORIDE 103 MMOL/L (98-107); CREATININE SERUM 0.78 MG/DL (0.60-1.30); GFR ESTIMATED > 60; GLUCOSE 91 MG/DL (70-105); POTASSIUM 3.9 MMOL/L (3.6-5.0); SODIUM 139 MMOL/L (135-145); TOTAL PROTEIN 7.8 GM/DL (6.4-8.2)
== END 2017-03-09 | disposition home or self-care (01) ==
LOC: ONC 09:52
PROVIDERS: ATTEND Internal Medicine Hematology & Oncology
DX: C50.411 Malignant neoplasm of upper-outer quadrant of right female breast (principal); Z17.0 Estrogen receptor positive status [ER+]; R59.0 Localized enlarged lymph nodes; Z90.11 Acquired absence of right breast and nipple; E55.9 Vitamin D deficiency, unspecified; G43.909 Migraine, unspecified, not intractable, without status migrainosus; E66.9 Obesity, unspecified; Z68.30 Body mass index [BMI] 30.0-30.9, adult; Z80.3 Family history of malignant neoplasm of breast; Z79.811 Long term (current) use of aromatase inhibitors; Z79.899 Other long term (current) drug therapy
CPT/HCPCS: 36415; 80053; 85025; 99213

== ENCOUNTER 2017-05-29 19:59 | Emergency (ER) | payer SELFPAY ==
[~2017-05-29] VITALS: Ht 167.6 cm; Wt 88.5 kg
[~2017-05-29 19:59] MED LIST changes: -FAMOTIDINE 20MG/2ML IV (CANCER CTR) IV SCH; -NORMAL SALINE IV SCH; -NS IV 500 ML (CANCER CENTER) IV SCH; -ONDANSETRON 16 MG, DEXAMETHASONE 10 MG/NS 50 ML IVPB IV SCH; -PACLITAXEL IV SCH; -diphenhydrAMINE 25 MG TAB (BENADRYL) CANCER CENTER PO SCH
[2017-05-29] MEDS ORDERED: BENZ-13 PO (22:22)
--- NOTE | 2017-05-29 22:22 | ED Cough/URI ---
General Chief Complaint: Cough/Cold/Flu Symptoms Stated Complaint: FEVER Nursing Triage Note: PT REPORTS SORE THROAT, COUGH, CONGESTION, CESAR, MALAISE AND FEVER SINCE YESTERDAY. PT REPORTS SHE HAS NOT AKEN ANYTHING FOR HER FEVER SINCE 1330 TODAY. Source: patient, spouse Exam Limitations: no limitations History of Present Illness Time seen by provider: 22:12 Initial Comments Patient presents to ER by private conveyance with chief complaint she is having 3 days progressively worsening upper respiratory symptoms of nasal congestion, ear fullness, headache, body aches, fever with a MAXIMUM TEMPERATURE of 104F today. She's been using [id number] Tylenol, Motrin, cough and cold remedies and knows of helped quite a bit. He was concerned because of the fever. Her spouse is also been sick but not as bad for the last couple days with cold symptoms. No known influenza exposure. She has not taken a flu shot ever. She was recently put in remission from breast cancer with surgery, radiation, chemotherapy. She has no structural lung disease and has never smoked. Allergies and Home Medications Allergies Coded Allergies: meperidine (Verified Allergy, Unknown, 01/18/17) oxycodone (Unverified Allergy, Unknown, 01/18/17) Uncoded Allergies: ssri (Adverse Reaction, Unknown, 03/12/16) Home Medications Calcium Carb & Citrate/Vit D3 1 Each Tablet.er, 1 EACH PO DAILY, (Reported) Multivitamin 1 Each Tablet, 1 EACH PO DAILY, (Reported) Ubidecarenone 100 Mg Capsule, 100 MG PO DAILY, (Reported) Constitutional: chills, No dizziness, fever, malaise EENTM: No hearing loss, No ear pain Respiratory: cough, No phlegm, No short of breath, No wheezing Cardiovascular: No chest pain, No edema Gastrointestinal: No abdominal pain, No constipation, No diarrhea, No nausea Genitourinary: No discharge, No dysuria Skin: No pruritus, No rash Past Nurpktm-Hfsnch-Cboxyw Hx Patient Social History Alcohol Use: Denies Use Recreational Drug Use: No Smoking Status: Never a Smoker Recent Foreign Travel: No Contact w/Someone Who Travel: No Recent Infectious Disease Expo: No Recent Hopitalizations: No (MARCH 2016 - INFECTED TOOTH, ON CHEMO) Physical Abuse: No Sexual Abuse: No Mistreated: No Fear: No Immunizations Up To Date Tetanus Booster (TDap): More than 5yrs Seasonal Allergies Seasonal Allergies: Yes (MILD) Surgeries History of Surgeries: Yes (PORT, BILATERAL MASTECTOMY) Surgeries: Tonsillectomy, Tubal Ligation Respiratory History of Respiratory Disorde: No Currently Using CPAP: No Currently Using BIPAP: No Cardiovascular History of Cardiac Disorders: No Neurological History of Neurological Disord: No Reproductive System Hx Reproductive Disorders: No Sexually Transmitted Disease: No 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: Tubal Ligation Gastrointestinal History of Gastrointestinal Di: No Gastrointestinal Disorders: Gastroesophageal Reflux Musculoskeletal History of Musculoskeletal Dis: Yes (IN 2014) Musculoskeletal Disorders: Back Injury, Chronic Back Pain Endocrine History of Endocrine Disorders: No HEENT Loss of Vision: Bilateral Hearing Impairment: Denies Cancer History of Cancer: Yes Cancer: Breast Did You Recieve Any Treatments: Yes Type of Tx Receive: Chemotherapy Psychosocial History of Psychiatric Problem: Yes Behavioral Health Disorders: Anxiety Suicide Risk Score: 0 Integumentary History of Skin or Integumenta: No Blood Transfusions History of Blood Disorders: No Adverse Reaction to a Blood Tr: No (N/A) Family Medical History Family Medial History: Cardiovascular disease 19 FATHER FH: breast cancer 19 MOTHER MATERNAL GRANDMOTHER FH: lymphoma MATERNAL AUNT PATERNAL AUNT Myocardial infarction 19 FATHER Physical Exam Vital Signs Vital Sign - Last 12Hours 05/29/17 21:01 Temp 103.1 Pulse 123 Resp 20 B/P (MAP) 104/56 (72) Pulse Ox 96 O2 Delivery Room Air Capillary Refill : Less Than 3 Seconds General Appearance: WD/WN, no apparent distress Eyes: Bilateral Eye Normal Inspection, Bilateral Eye PERRL, Bilateral Eye EOMI HEENT: PERRL/EOMI, normal ENT inspection, TMs normal, pharynx normal, other ( clear serous nasal congestion and rhinorrhea.) Neck: non-tender, full range of motion, supple, normal inspection Respiratory: chest non-tender, lungs clear, normal breath sounds, no respiratory distress, no accessory muscle use Cardiovascular: normal peripheral pulses, regular rate, rhythm, no edema Gastrointestinal: normal bowel sounds, non tender, soft Neurologic/Psychiatric: alert, normal mood/affect, oriented x 3 Skin: normal color, warm/dry Progress/Results/Core Measures Suspected Sepsis Recent Fever Within 48 Hours: Yes Infection Criteria Present: None New/Unexplained Altered Menta: No Sepsis Screen: No Definite Risk Sepsis Diagnosis: SIRS Temperature:103.1 Pulse: 123 Respiratory Rate: 20 Blood Pressure 104 /56 Mean: 72 Results/Orders Micro Results Microbiology 05/29/17 Influenza Types A,B Antigen (DARI) - Final, Complete Vital Signs/I&O Vital Sign - Last 12Hours 05/29/17 05/29/17 21:01 21:01 Temp 103.1 Pulse 123 Resp 20 B/P (MAP) 104/56 (72) Pulse Ox 96 O2 Delivery Room Air Capillary Refill : Less Than 3 Seconds Blood Pressure Mean: 72 Departure Impression Impression: Primary Impression: Upper respiratory infection Qualified Codes: J06.9 - Acute upper respiratory infection, unspecified; B97.89 - Other viral agents as the cause of diseases classified elsewhere Disposition: HOME, SELF-CARE Condition: Stable Departure-Patient Inst. Decision time for Depature: 22:20 Referrals: NO,LOCAL PHYSICIAN (PCP/Family) Primary Care Physician Patient Instructions: Cough, Runny Nose, and the Common Cold (DC) Add. Discharge Instructions: Expect a cold last 5-7 days but it goes on longer than 10 days not getting better follow-up with your primary care physician or urgent care. Use Tylenol 1000 g every 8 hours with ibuprofen 800 mg every 8 hours as well as any over-the -counter cold remedies you want to use. Be mindful that Tylenol is often in cold remedies. Use vapor rubs like Vicks, humidifiers and heating pads. Encourage lots of fluids to keep your nose running. Return to the ER if you have shortness of breath, sick. Phlegm, chest pain, fever above 102.5 despite Tylenol and Motrin. All discharge instructions reviewed with patient and/or family. Voiced understanding. Scripts Benzonatate (Tessalon Perle) 100 Mg Capsule 100 MG PO Q6H Y for COUGH, #30 CAP 0 Refills Prov: MORIAH JEFFERY 05/29/17 Copy Copies To 1: IRINA ROLAND TITUS J May 29, 2017 22:22
[2017-05-29 22:30] VITALS: BP 115/78
== END 2017-05-29 22:30 | disposition home or self-care (01) ==
LOC: EDUNIT# 19:59 → ER 20:00
DX: J06.9 Acute upper respiratory infection, unspecified (principal); K21.9 Gastro-esophageal reflux disease without esophagitis; F41.9 Anxiety disorder, unspecified; Z85.3 Personal history of malignant neoplasm of breast; Z82.49 Family history of ischemic heart disease and other diseases of the circulatory system; Z80.3 Family history of malignant neoplasm of breast; Z80.7 Family history of other malignant neoplasms of lymphoid, hematopoietic and related tissues; Z98.51 Tubal ligation status
CPT/HCPCS: 87804; 99282

== ENCOUNTER 2017-07-25 14:21 | Outpatient (RCR) | payer SELFPAY ==
[~2017-07-25 14:21] MED LIST changes: +ACHD5005 PO; +BENZ-13 PO; -HYDR-3812 PO
[2017-07-25 14:32] LABS: BASOPHILS % (AUTO) 0 % (0-10); EOSINOPHILS # (AUTO) 0.1 10^3/uL (0.0-0.3); EOSINOPHILS % (AUTO) 2 % (0-10); HEMATOCRIT 38 % (35-52); HEMOGLOBIN 12.9 G/DL (11.5-16.0); LYMPHOCYTES # (AUTO) 1.1 X 10^3 (1.0-4.0); LYMPHOCYTES % (AUTO) 17 % (12-44); MEAN CORPUSCULAR HEMOGLOBIN 29 PG (25-34); MEAN CORPUSCULAR HGB CONC 34 G/DL (32-36); MEAN CORPUSCULAR VOLUME 86 FL (80-99); MEAN PLATELET VOLUME 9.6 FL (7.4-10.4); MONOCYTES # (AUTO) 0.5 X 10^3 (0.0-1.0); MONOCYTES % (AUTO) 7 % (0-12); NEUTROPHILS # (AUTO) 4.7 X 10^3 (1.8-7.8); NEUTROPHILS % (AUTO) 73 % (42-75); PLATELET COUNT 246 10^3/uL (130-400); RED BLOOD COUNT 4.42 10^6/uL (4.35-5.85); RED CELL DISTRIBUTION WIDTH 13.9 % (10.0-14.5); WHITE BLOOD COUNT 6.4 10^3/uL (4.3-11.0)
[2017-07-25 14:55] LABS: ALANINE AMINOTRANSFERASE 17 U/L (0-55); ALBUMIN 4.3 GM/DL (3.2-4.5); ALKALINE PHOSPHATASE 101 U/L (40-136); BILIRUBIN,TOTAL 0.7 MG/DL (0.1-1.0); BUN/CREATININE RATIO 16; CALCIUM 9.3 MG/DL (8.5-10.1); CARBON DIOXIDE 26 MMOL/L (21-32); CHLORIDE 104 MMOL/L (98-107); CREATININE SERUM 0.83 MG/DL (0.60-1.30); GFR ESTIMATED > 60; GLUCOSE 118 MG/DL (70-105); POTASSIUM 3.7 MMOL/L (3.6-5.0); SODIUM 141 MMOL/L (135-145); TOTAL PROTEIN 7.9 GM/DL (6.4-8.2)
== END 2017-09-10 14:13 | disposition home or self-care (01) ==
LOC: ONC 14:21
PROVIDERS: ATTEND Internal Medicine Hematology & Oncology
DX: C50.411 Malignant neoplasm of upper-outer quadrant of right female breast (principal); C77.3 Secondary and unspecified malignant neoplasm of axilla and upper limb lymph nodes; G62.0 Drug-induced polyneuropathy; T45.1X5A Adverse effect of antineoplastic and immunosuppressive drugs, initial encounter; E55.9 Vitamin D deficiency, unspecified; G43.909 Migraine, unspecified, not intractable, without status migrainosus; E66.9 Obesity, unspecified; Z68.30 Body mass index [BMI] 30.0-30.9, adult; Z17.0 Estrogen receptor positive status [ER+]; Z90.11 Acquired absence of right breast and nipple; Z80.3 Family history of malignant neoplasm of breast; Z79.811 Long term (current) use of aromatase inhibitors; Z79.899 Other long term (current) drug therapy; Z92.21 Personal history of antineoplastic chemotherapy; Z92.3 Personal history of irradiation
CPT/HCPCS: 36415; 80053; 85025; 99213

== ENCOUNTER → 2017-08-05 | Outpatient (CLI) | payer OTHER ==
--- NOTE | 2017-08-05 12:50 | Diagnostic Imaging Report ---
INDICATION: Left breast density. The patient presents for a 6 month followup. COMPARISON: Correlation is made with a prior left breast ultrasound from 01/01/2017. FINDINGS: Sonographic interrogation of the 10 o'clock location of the right breast 8i cm from the nipple was performed. The previously noted area of hyperechogenicity measuring 9 mm x 5 mm x 8 mm is similar to the prior exam and again may represent fibroglandular tissue. A lymph node would be an additional consideration. No other abnormalities are seen. IMPRESSION: Stable left breast ultrasound. Followup in 6 months is recommended to show continued stability. Dictated by: Dictated on workstation # [id number]
--- NOTE | 2017-08-05 13:00 | Diagnostic Imaging Report ---
INDICATION: Six-month followup left breast density. COMPARISON: 12/21/2016 and 09/05/2015. FINDINGS: A focal density in the upper inner aspect of the left breast appears stable. There are scattered fibroglandular densities in the left breast. No new mass is seen. No malignant appearing microcalcifications are seen. There are benign calcifications identified. The left axilla is unremarkable. IMPRESSION: Stable left mammogram. Further evaluation of the left breast with ultrasound is recommended and will be performed today. ACR BI-RADS Category 0: Incomplete. (Needs additional imaging evaluation). Result letter will be mailed to the patient. Note: At least 10% of breast cancer is not imaged by mammography. Dictated by: Dictated on workstation # [id number]
== END ==
LOC: RAD 08:40
PROVIDERS: ATTEND Nurse Practitioner Adult Health
DX: C50.411 Malignant neoplasm of upper-outer quadrant of right female breast (principal)
CPT/HCPCS: 76642

== ENCOUNTER 2017-10-23 10:02 | Outpatient (RCR) | payer OTHER ==
[2017-09-11 10:31] LABS: BILIRUBIN,URINE NEGATIVE (NEGATIVE); CLARITY,URINE SLIGHTLY CLOUDY; COLOR,URINE YELLOW; GLUCOSE, URINE (UA) NEGATIVE (NEGATIVE); KETONES,URINE NEGATIVE (NEGATIVE); LEUKOCYTE ESTERASE ,URINE NEGATIVE (NEGATIVE); NITRITE,URINE NEGATIVE (NEGATIVE); PH,URINE 8 (5-9); PROTEIN,URINE NEGATIVE (NEGATIVE); UROBILINOGEN,URINE NORMAL (NORMAL)
[2017-09-11 10:40] LABS: BACTERIA,URINE FEW /HPF; RBC,URINE RARE /HPF; SQUAMOUS EPITHELIAL CELL,UR RARE /HPF
[2017-10-23 10:21] LABS: BASOPHILS % (AUTO) 1 % (0-10); EOSINOPHILS # (AUTO) 0.1 10^3/uL (0.0-0.3); EOSINOPHILS % (AUTO) 3 % (0-10); HEMATOCRIT 37 % (35-52); HEMOGLOBIN 12.8 G/DL (11.5-16.0); LYMPHOCYTES # (AUTO) 0.8 X 10^3 (1.0-4.0); LYMPHOCYTES % (AUTO) 20 % (12-44); MEAN CORPUSCULAR HEMOGLOBIN 29 PG (25-34); MEAN CORPUSCULAR HGB CONC 34 G/DL (32-36); MEAN CORPUSCULAR VOLUME 85 FL (80-99); MEAN PLATELET VOLUME 9.7 FL (7.4-10.4); MONOCYTES # (AUTO) 0.4 X 10^3 (0.0-1.0); MONOCYTES % (AUTO) 10 % (0-12); NEUTROPHILS # (AUTO) 2.6 X 10^3 (1.8-7.8); NEUTROPHILS % (AUTO) 67 % (42-75); PLATELET COUNT 206 10^3/uL (130-400); RED BLOOD COUNT 4.39 10^6/uL (4.35-5.85); RED CELL DISTRIBUTION WIDTH 13.9 % (10.0-14.5); WHITE BLOOD COUNT 3.9 10^3/uL (4.3-11.0)
[2017-10-23 10:45] LABS: ALANINE AMINOTRANSFERASE 12 U/L (0-55); ALBUMIN 4.3 GM/DL (3.2-4.5); ALKALINE PHOSPHATASE 73 U/L (40-136); BILIRUBIN,TOTAL 0.6 MG/DL (0.1-1.0); BUN/CREATININE RATIO 14; CALCIUM 9.2 MG/DL (8.5-10.1); CARBON DIOXIDE 23 MMOL/L (21-32); CHLORIDE 107 MMOL/L (98-107); CREATININE SERUM 0.71 MG/DL (0.60-1.30); GFR ESTIMATED > 60; GLUCOSE 94 MG/DL (70-105); POTASSIUM 4.1 MMOL/L (3.6-5.0); SODIUM 140 MMOL/L (135-145); TOTAL PROTEIN 7.5 GM/DL (6.4-8.2)
== END 2017-12-10 | disposition home or self-care (01) ==
LOC: ONC 10:02
PROVIDERS: ATTEND Internal Medicine Hematology & Oncology
DX: C50.411 Malignant neoplasm of upper-outer quadrant of right female breast (principal); C77.3 Secondary and unspecified malignant neoplasm of axilla and upper limb lymph nodes; E55.9 Vitamin D deficiency, unspecified; G43.909 Migraine, unspecified, not intractable, without status migrainosus; R82.99 Other abnormal findings in urine; Z17.0 Estrogen receptor positive status [ER+]; Z90.11 Acquired absence of right breast and nipple; Z80.3 Family history of malignant neoplasm of breast; Z79.811 Long term (current) use of aromatase inhibitors; Z79.899 Other long term (current) drug therapy; Z92.21 Personal history of antineoplastic chemotherapy; Z92.3 Personal history of irradiation
CPT/HCPCS: 36415; 80053; 81000; 82306; 85025; 87077; 87088; 87186; 99213